=== PATIENT | male | born 1960 | race Caucasian/White ===

== ENCOUNTER → 2018-09-21 07:54 | Outpatient (CLI) | payer BC, SELFPAY ==
--- NOTE | 2018-09-21 07:56 | CT_ITS ---
CT heart w calcium score INDICATION: ITS.REASON: dizziness, DM, tachycardia ORDERING PHYSICIAN: Natan Shukla MD PATIENT AGE: 58 years COMPARISON: None TECHNIQUE: Axial images are obtained without contrast. Sagittal and coronal reformatted images are reviewed as well. All CT scans at the facility use one or more dose reduction, viz: automated exposure control, ma/kV adjustment per patient size (including targeted exams where dose is matched to indication, i.e. head), or iterative reconstruction technique. FINDINGS: The coronary artery calcium score 1 indicating minimal plaque burden with low cardiovascular disease risk. IMPRESSION: Minimal plaque burden with low cardiovascular disease risk
== END ==
PROVIDERS: PCP Physician Assistant; Visit Provider Internal Medicine Cardiovascular Disease
DX: E11.8 Type 2 diabetes mellitus with unspecified complications (principal); E78.2 Mixed hyperlipidemia; I10 Essential (primary) hypertension; R00.0 Tachycardia, unspecified; Z87.891 Personal history of nicotine dependence
CPT/HCPCS: 75571

== ENCOUNTER → 2019-04-17 09:05 | Outpatient (CLI) | payer OTHER, SELFPAY ==
--- NOTE | 2019-04-17 09:37 | MR_ITS ---
PROCEDURE: MR SHOULDER RT WO CON CLINICAL INDICATION: exclude rotator cuff tear Right shoulder pain and popping with weakness in the arm. Previous shoulder surgery COMPARISON: XR SHOULDER RT MIN 2V from 03/23/2019 TECHNIQUE: Routine multiplanar multi echo sequences are performed without gadolinium enhancement. FINDINGS: There are postsurgical changes of the shoulder with prior osteotomy of the acromioclavicular joint with fluid present in the sub acromial in subclavicular region. There is thickening of the supraspinatus tendon with diffuse slight increased T2 signal consistent with tendinopathy or tendinosis. This could also be related to postsurgical changes. No obvious tear of the supraspinatus tendon. There is a complete tear of the infraspinatus tendon with mild retraction of the musculotendinous fibers. The teres minor tendon appears intact. There is thickening of the subscapularis tendon with some discontinuity of the fibers consistent with least a partial tear of the subscapularis tendon. No obvious labral tear. There is medial displacement of the long head of the biceps tendon not identified in the bicipital groove. There is a small shoulder joint effusion. IMPRESSION: 1. Complete tear of the infraspinatus tendon with mild retraction of the musculotendinous fibers. 2. Abnormal appearance of the supraspinatus tendon with thickening distally and may be due to tendinopathy/tendinosis and or postsurgical repair. A complete tear of the supraspinatus tendon is not felt to be present. 3. Prior osteotomy of the acromioclavicular joint with fluid inferior to the joint 4. Partial tear of the subscapularis tendon 5. There is medial displacement of the long head of the biceps tendon not identified in the bicipital groove Dictated by: Ravi Fang MD 04/19/2019 06:41 Electronically signed by Ravi Fang MD in [place] 04/19/2019 06:41
== END ==
PROVIDERS: PCP Physician Assistant; Visit Provider Orthopaedic Surgery
DX: M25.511 Pain in right shoulder (principal); S49.91XA Unspecified injury of right shoulder and upper arm, initial encounter; Y99.0 Civilian activity done for income or pay
CPT/HCPCS: 73221

== ENCOUNTER → 2019-05-09 14:11 | Outpatient (CLI) | payer OTHER, SELFPAY ==
--- NOTE | 2019-05-09 14:44 | XR_ITS ---
PROCEDURE: XR CHEST 2V CLINICAL HISTORY: HTN COMPARISON: CXR CHEST(2 VIEWS-NOT PORTABLE) from 09/07/2013 FINDINGS: The cardiomediastinal silhouette and pulmonary vascularity are within normal limits. The lungs are clear without infiltrates, suspicious nodules, or pleural effusions. No acute bony abnormalities. IMPRESSION: No acute findings. Dictated by: Ravi Fang MD 05/09/2019 14:56 Electronically signed by Ravi Fang MD in [facility] 05/09/2019 14:56
[2019-05-09 14:45] LABS: Basophils # 0.1 K/mm3 (0-0.2); Basophils % 0.8 % (0.1-2.0); Eosinophils # 0.2 K/mm3 (0.0-0.4); Hematocrit 49.2 % (42.0-52.0); Hemoglobin 16.8 g/dL (14.1-18.0); Lymphocytes # 3.3 K/mm3 (0.7-4.5); Lymphocytes % 32.2 % (10-50); Mean Corpuscular HGB Conc 34.1 g/dL (31.8-35.4); Mean Corpuscular Hemoglobin 30.6 pg (27.0-31.2); Mean Corpuscular Volume 89.9 fl (80-94); Mean Platelet Volume 8.3 fl (7.4-10.4); Monocytes # 0.6 K/mm3 (0.1-1.0); Monocytes % 5.3 % (1.7-9.3); Neutrophils # 6.2 K/mm3 (1.8-7.8); Neutrophils % 59.6 % (37.0-80.0); Platelet Count 272 K/mm3 (142-424); Red Blood Count 5.48 M/mm3 (4.60-6.20); White Blood Count 10.4 K/mm3 (4.8-10.8)
--- NOTE | 2019-05-09 15:04 | ECG_ITS ---
APPROVED REPORT Exam: Resting ECG HR:79 bpm ECG Measurements Heart Rate 79 AXES LA 146 P 67 QRSd 86 QRS 36 QT 380 T 56 QTc 435 <Conclusion> Normal sinus rhythm Normal ECG Electronically signed by : Ronnie Marrero, 05/09/2019 21:22:55
[2019-05-09 15:46] LABS: Hemoglobin A1C 6.1 % (0.0-7.0)
[2019-05-09 16:58] LABS: Alanine Aminotransferase 21 U/L (12-78); Albumin Level 4.1 gm/dL (3.4-5.0); Albumin/Globulin Ratio 1.4 (1.1-1.8); Alkaline Phosphatase 73 U/L (46-116); Anion Gap 16.2 mEq/L (5-15); Aspartate Amino Transferase 15 U/L (15-37); Bilirubin,Total 0.9 mg/dL (0.2-1.0); Blood Urea Nitrogen 20 mg/dL (7-18); Calcium 9.2 mg/dL (8.5-10.1); Carbon Dioxide 25 mmol/L (21.0-32.0); Chloride 100 mmol/L (98-107); Creatinine,Serum 0.97 mg/dL (0.70-1.30); Estimated Glomerular Filt Rate 79 ml/min (>60); GFR (African American) 96 ML/MIN (>60); Globulin 2.9 gm/dl (1.3-3.2); Glucose 129 mg/dL (74-106); Potassium 4.2 mmoL/L (3.5-5.1); Sodium 137 mmol/L (136-145)
== END ==
PROVIDERS: PCP Physician Assistant; Visit Provider Orthopaedic Surgery
DX: Z01.818 Encounter for other preprocedural examination (principal); M25.511 Pain in right shoulder; S46.119A Strain of muscle, fascia and tendon of long head of biceps, unspecified arm, initial encounter; S49.91XD Unspecified injury of right shoulder and upper arm, subsequent encounter; S46.011D Strain of muscle(s) and tendon(s) of the rotator cuff of right shoulder, subsequent encounter; M67.911 Unspecified disorder of synovium and tendon, right shoulder; Y99.0 Civilian activity done for income or pay; Z98.890 Other specified postprocedural states
CPT/HCPCS: 36415; 71046; 80053; 83036; 85025; 93005

== ENCOUNTER → 2019-08-21 08:28 | Outpatient (CLI) | payer OTHER, SELFPAY ==
--- NOTE | 2019-08-21 08:31 | XR_ITS ---
PROCEDURE: XR SHOULDER RT MIN 2V CLINICAL INDICATION: sp RT shoulder surgery, dos 05/14/19 Follow-up surgery COMPARISON: SHOU3L [id number] VIEWS from 07/21/2013 SHOU3R [id number] VIEWS from 11/12/2014 XR SHOULDER RT MIN 2V from 03/23/2019 FINDINGS: There are 2 anchor screws over the mid aspect of the humeral head. There is a faint area of calcification overlying the greater tuberosity which could be due to a small avulsed fragment or soft tissue calcification. There is good alignment with mild osteoarthritic changes of the glenohumeral joint. A lucency is present in the proximal shaft of the humerus and may be related bicipital transfer. There are 2 lucencies in the humeral head which may be postsurgical. Please correlate with patient's surgical history the IMPRESSION: Postsurgical changes as described above Dictated by: Ravi Fang MD 08/21/2019 12:07 Electronically signed by Ravi Fang MD in [place] 08/21/2019 12:07
== END ==
PROVIDERS: PCP Physician Assistant; Visit Provider Orthopaedic Surgery
DX: Z09 Encounter for follow-up examination after completed treatment for conditions other than malignant neoplasm (principal); M25.511 Pain in right shoulder
CPT/HCPCS: 73030

== ENCOUNTER 2019-09-04 07:00 | Outpatient (RCR) | payer OTHER, SELFPAY ==
--- NOTE | 2019-07-12 09:11 | HMH.PTOPEV ---
PT Outpatient Evaluation Rehab PT Outpatient Evaluation Start: 07/12/19 08:01 Freq: Status: Active Protocol: Document 07/12/19 08:37 FUENTES (Rec: 07/12/19 09:11 PDESEROUX [id number]) Electronically Signed By Andre Sands, PT 07/12/19 08:37 Outpatient Therapy Subjective History Subjective History Pt. is a 59 year old male who presents to outpatient PT clinic with complaints of subacute and constant R shoulder pain/ soreness s/p R shldr. arthroscopic RCR, SAD w/ subacromial and subdeltoid bursectomy, GH jt. debridement , and bicep tenodesis on 05/14. 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 Pt. reports post surgical restrictions including no pushing/pulling nor lifting, and donning sling at all times. Pt. RTMD on . Current medications include Ibuprofen and Metformin. PMH includes 2 prior R shldr. RCRs, L shldr. RCR x 1, HTN, R elbow fx., type II diabetes, and Lymphoma . Chief Complaint Pain,Other Symptom Type Ache,Numbness Symptoms Relieved By Rest/Positioning,Ice,Brace/ Support,Prescription Meds Symptoms Aggravated By Supine,Physical Activity, Lifting Prior Functional Limitations None Current Functional Limitations Reaching,Lifting,Housework, Dressing,Driving,Sleeping Symptom Description Constant and Continuous Level of pain today (0-10) 5 Pain scale - at its best (0-10) 5 Pain scale - at its worst (0-10) 7 Shoulder/Elbow Eval Shoulder Objective Measurements Palpation Tenderness tenderness shoulder exam standard right tenderness over the bicipital tendon right shoulder exam standard tenderness over the SA bursa shoulder right exam standard Shoulder Palpation Findings Tenderness Shoulder Palpation Overall Comment grade 3 +TTP to above assessment, and R upper trap/
== END 2019-10-16 08:36 | disposition home or self-care (01) ==
LOC: PT.CARL 07:00
PROVIDERS: Visit Provider Orthopaedic Surgery
DX: M25.511 Pain in right shoulder (principal); S49.91XD Unspecified injury of right shoulder and upper arm, subsequent encounter; S46.011D Strain of muscle(s) and tendon(s) of the rotator cuff of right shoulder, subsequent encounter; S46.119A Strain of muscle, fascia and tendon of long head of biceps, unspecified arm, initial encounter; Z98.890 Other specified postprocedural states; Y99.0 Civilian activity done for income or pay
CPT/HCPCS: 97010; 97014; 97033; 97110; 97140; 97163; 97164; G0283

== ENCOUNTER → 2019-10-08 08:03 | Outpatient (CLI) | payer OTHER, SELFPAY ==
[2019-10-08 08:26] LABS: Basophils # 0.1 K/mm3 (0-0.2); Basophils % 0.8 % (0.1-2.0); Chloride 100 mmol/L (98-107); Eosinophils # 0.1 K/mm3 (0.0-0.4); Eosinophils % 1.2 % (0.1-12.0); Hematocrit 49.6 % (42.0-52.0); Hemoglobin 16.2 g/dL (14.1-18.0); Lymphocytes # 2.6 K/mm3 (0.7-4.5); Lymphocytes % 30.3 % (10-50); Mean Corpuscular HGB Conc 32.8 g/dL (31.8-35.4); Mean Corpuscular Hemoglobin 29.2 pg (27.0-31.2); Mean Corpuscular Volume 89.2 fl (80-94); Mean Platelet Volume 7.5 fl (7.4-10.4); Monocytes # 0.6 K/mm3 (0.1-1.0); Monocytes % 7.4 % (1.7-9.3); Neutrophils # 5.1 K/mm3 (1.8-7.8); Neutrophils % 60.4 % (37.0-80.0); Platelet Count 322 K/mm3 (142-424); Red Blood Count 5.56 M/mm3 (4.60-6.20); Red Cell Distribution Width 13.8 % (11.5-17.5); Sodium 138 mmol/L (136-145); White Blood Count 8.5 K/mm3 (4.8-10.8)
[2019-10-08 08:27] LABS: Potassium 4.3 mmoL/L (3.5-5.1)
[2019-10-08 08:29] LABS: Blood Urea Nitrogen 14 mg/dl (9-20); Estimated Glomerular Filt Rate 115 ml/min (>60); GFR (African American) 139 ML/MIN (>60)
[2019-10-08 08:30] LABS: Anion Gap 14.3 mEq/L (5-15); Calcium 9.9 mg/dl (8.4-10.2); Carbon Dioxide 28 mmol/L (22.0-30.0); Glucose 139 mg/dl (74-100)
[2019-10-08 08:35] LABS: C-Reactive Protein 28.7 mg/L (0-4)
[2019-10-08 08:53] LABS: Erythrocyte Sedimentation Rate 16 mm/hr (0-20)
--- NOTE | 2019-10-08 09:52 | XR_ITS ---
PROCEDURE: XR SHOULDER RT MIN 2V CLINICAL INDICATION: right shoulder pain Pain and swelling COMPARISON: SHOU3L [id number] VIEWS from 07/21/2013 SHOU3R [id number] VIEWS from 11/12/2014 XR SHOULDER RT MIN 2V from 03/23/2019 XR SHOULDER RT MIN 2V from 08/21/2019 FINDINGS: There are postsurgical changes with 2 anchor screws along the proximal aspect of the humerus. A lucent defect is noted in the proximal humeral and may be due to prior bicipital tendon transfer. There is some irregularity of the greater tuberosity some of which may be due to postsurgical changes. Minimal osteoarthritic change noted at the glenohumeral joint. IMPRESSION: There are mild osteoarthritic changes and postsurgical changes as described above. Dictated by: Ravi Fang MD 10/08/2019 15:02 Electronically signed by Ravi Fang MD in [place] 10/08/2019 15:02
== END ==
LOC: LAB 08:04 → RAD 09:49
PROVIDERS: PCP Physician Assistant; Visit Provider Orthopaedic Surgery
DX: M25.511 Pain in right shoulder (principal); Z09 Encounter for follow-up examination after completed treatment for conditions other than malignant neoplasm
CPT/HCPCS: 36415; 73030; 80048; 85025; 85651; 86140

== ENCOUNTER → 2019-10-16 10:37 | Outpatient (CLI) | payer OTHER, SELFPAY ==
--- NOTE | 2019-10-16 10:38 | MR_ITS ---
PROCEDURE: MR SHOULDER RT WO/W CON CLINICAL INDICATION: sp RT shoulder sx 05/14/19 COMPARISON: MR SHOULDER RT WO CON from 04/17/2019 XR SHOULDER RT MIN 2V from 10/08/2019 TECHNIQUE: Routine multiplanar multi echo sequences are performed without and with gadolinium enhancement. FINDINGS: There is complete tear of the infraspinatus tendon with retraction of the musculotendinous fibers. There is now evidence of complete tear of the supraspinatus tendon with retraction of the musculotendinous fibers. Postsurgical changes are present at the shoulder with screws in the humeral head. There is tendinopathy/tendinosis of the subscapularis tendon. The teres minor tendon appears intact. There is been bicipital tendon transfer. There is a small shoulder joint effusion and there is fluid in the subacromial/sub coracoid region as well as a small amount fluid in the shoulder joint. Considerable artifact is present from the surgical changes. Edema is also noted in the posterior lateral deltoid region likely from the previous surgery. No obvious labral tear. IMPRESSION: 1. There is complete tear of the supraspinatus and infraspinatus tendon with retraction of the musculotendinous fibers. 2. Postsurgical changes are present with fluid noted in the sub acromial in subcoracoid region as well as in the shoulder joint Dictated by: Ravi Fang MD 10/18/2019 11:42 Electronically signed by Ravi Fang MD in [place] 10/18/2019 11:42
== END ==
PROVIDERS: PCP Physician Assistant; Visit Provider Orthopaedic Surgery
DX: M25.511 Pain in right shoulder (principal); Z09 Encounter for follow-up examination after completed treatment for conditions other than malignant neoplasm; Z98.890 Other specified postprocedural states
CPT/HCPCS: 73223

== ENCOUNTER → 2019-10-22 14:44 | Outpatient (POV) | payer OTHER, SELFPAY | PROVIDERS: PCP Physician Assistant; Visit Provider Specialist | DX: M79.601 Pain in right arm (principal); M62.81 Muscle weakness (generalized); Z09 Encounter for follow-up examination after completed treatment for conditions other than malignant neoplasm; Z98.890 Other specified postprocedural states | CPT/HCPCS: 95886; 95908 ==

== ENCOUNTER → 2019-12-24 14:42 | Outpatient (CLI) | payer BC, SELFPAY ==
[2019-12-26 13:31] LABS: Covid-19 Nasal PCR Sendout Lex Not Detected
== END ==
PROVIDERS: PCP Physician Assistant; Visit Provider Physician Assistant
DX: Z03.818 Encounter for observation for suspected exposure to other biological agents ruled out (principal)
CPT/HCPCS: U0004

== ENCOUNTER 2020-07-07 08:00 | Outpatient (RCR) | payer OTHER, SELFPAY | END 2020-08-13 16:17 | disposition home or self-care (01) | LOC: PT.CARL 08:00 | PROVIDERS: Visit Provider Orthopaedic Surgery | DX: M25.511 Pain in right shoulder (principal) | CPT/HCPCS: 97010; 97014; 97033; 97035; 97110; 97140; 97163; 97164; G0283 ==

== ENCOUNTER → 2020-08-18 10:42 | Outpatient (CLI) | payer OTHER, BC, SELFPAY | PROVIDERS: PCP Physician Assistant; Visit Provider Orthopaedic Surgery | DX: Z01.812 Encounter for preprocedural laboratory examination (principal); Z20.822 Contact with and (suspected) exposure to COVID-19; M25.519 Pain in unspecified shoulder | CPT/HCPCS: U0003 ==

== ENCOUNTER 2021-02-06 07:00 | Outpatient (RCR) | payer OTHER, SELFPAY | END 2021-03-06 12:00 | disposition home or self-care (01) | LOC: PT.CARL 07:00 | PROVIDERS: Visit Provider Orthopaedic Surgery | DX: M25.511 Pain in right shoulder (principal) | CPT/HCPCS: 97010; 97014; 97110; 97140; 97163; 97164; G0283 ==

== ENCOUNTER → 2022-03-16 14:22 | Outpatient (CLI) | payer MEDICARE, SELFPAY ==
[2022-03-16 17:03] LABS: Alanine Aminotransferase 23 U/L (12-78); Albumin Level 4.4 g/dl (3.5-5.0); Albumin/Globulin Ratio 1.7 (1.1-1.8); Alkaline Phosphatase 85 U/L (38-126); Anion Gap 16.4 mEq/L (5-15); Aspartate Amino Transferase 32 U/L (17-59); Bilirubin,Total 1.3 mg/dl (0.2-1.3); Blood Urea Nitrogen 14 mg/dl (9-20); Carbon Dioxide 24 mmol/L (22.0-30.0); Chloride 100 mmol/L (98-107); Chol/HDL Ratio 2.5 (1-3.5); Cholesterol 149 mg/dl (140-200); Estimated Glomerular Filt Rate 98 ml/min (>60); GFR (African American) 119 ML/MIN (>60); Globulin 2.6 g/dL (1.3-3.2); Glucose 108 mg/dl (74-100); HDL Cholesterol 59 mg/dl (40-60); Potassium 4.4 mmoL/L (3.5-5.1); Sodium 136 mmol/L (136-145); Triglycerides 77 mg/dl (30-150); VLDL Cholesterol 15 mg/dL (0-40)
[2022-03-16 17:34] LABS: Thyroid Stimulating Hormone 1.56 uIU/mL (0.465-4.68)
[2022-03-16 18:20] LABS: Hemoglobin A1C 6.6 % (4.0-6.0)
[2022-03-16 18:22] LABS: Basophils # 0.1 K/mm3 (0-0.2); Basophils % 1.5 % (0.1-2.0); Eosinophils # 0.1 K/mm3 (0.0-0.4); Eosinophils % 1.5 % (0.1-12.0); Hematocrit 49.6 % (42.0-52.0); Hemoglobin 16.3 g/dL (14.1-18.0); Lymphocytes # 2.7 K/mm3 (0.7-4.5); Lymphocytes % 43.6 % (10-50); Mean Corpuscular HGB Conc 32.9 g/dL (31.8-35.4); Mean Corpuscular Hemoglobin 29.6 pg (27.0-31.2); Mean Corpuscular Volume 89.8 fl (80-94); Mean Platelet Volume 20.5 fl (7.4-10.4); Monocytes # 0.6 K/mm3 (0.1-1.0); Monocytes % 9.1 % (1.7-9.3); Neutrophils # 2.8 K/mm3 (1.8-7.8); Neutrophils % 45.8 % (37.0-80.0); Platelet Count 222 K/mm3 (142-424); Red Blood Count 5.52 M/mm3 (4.60-6.20); Red Cell Distribution Width 15.3 % (11.5-17.5); White Blood Count 6.1 K/mm3 (4.8-10.8)
[2022-03-16 19:24] LABS: Creatinine,Urine Random 80 mg/dL (Not Estab.); Microalbumin < 6.000 mg/L (0-16.7)
== END ==
PROVIDERS: PCP Physician Assistant; Visit Provider Physician Assistant
DX: E11.9 Type 2 diabetes mellitus without complications (principal); I10 Essential (primary) hypertension; Z79.4 Long term (current) use of insulin
CPT/HCPCS: 80053; 80061; 82043; 82570; 83036; 84443; 85025

== ENCOUNTER → 2023-06-23 16:38 | Outpatient (CLI) | payer MEDICARE, OTHER, SELFPAY ==
[2023-06-23 16:11] LABS: Alanine Aminotransferase 32 U/L (12-78); Albumin Level 4.5 g/dl (3.5-5.0); Albumin/Globulin Ratio 1.7 (1.1-1.8); Alkaline Phosphatase 98 U/L (38-126); Anion Gap 11.9 mEq/L (5-15); Aspartate Amino Transferase 36 U/L (17-59); Bilirubin,Total 0.6 mg/dl (0.2-1.3); Blood Urea Nitrogen 20 mg/dl (9-20); Calcium 9.2 mg/dl (8.4-10.2); Carbon Dioxide 25 mmol/L (22.0-30.0); Chloride 105 mmol/L (98-107); Chol/HDL Ratio 3.2 (1-3.5); Cholesterol 224 mg/dl (140-200); Estimated Glomerular Filt Rate 97 ml/min (>60); GFR (African American) 118 ML/MIN (>60); Globulin 2.6 g/dL (1.3-3.2); Glucose 140 mg/dl (74-100); HDL Cholesterol 70 mg/dl (40-60); Potassium 4.9 mmoL/L (3.5-5.1); Sodium 137 mmol/L (136-145); Total Protein,Serum 7.1 g/dl (6.3-8.2); Triglycerides 64 mg/dl (30-150); VLDL Cholesterol 13 mg/dL (0-40)
[2023-06-23 16:13] LABS: Basophils # 0.1 K/mm3 (0-0.2); Basophils % 0.9 % (0.1-2.0); Eosinophils # 0.1 K/mm3 (0.0-0.4); Hematocrit 46.9 % (42.0-52.0); Hemoglobin 15.3 g/dL (14.1-18.0); Lymphocytes # 2.7 K/mm3 (0.7-4.5); Lymphocytes % 39.7 % (10-50); Mean Corpuscular HGB Conc 32.5 g/dL (31.8-35.4); Mean Corpuscular Hemoglobin 29.7 pg (27.0-31.2); Mean Corpuscular Volume 91.3 fl (80-94); Mean Platelet Volume 9.8 fl (7.4-10.4); Monocytes # 0.7 K/mm3 (0.1-1.0); Monocytes % 9.5 % (1.7-9.3); Neutrophils # 3.3 K/mm3 (1.8-7.8); Neutrophils % 47.9 % (37.0-80.0); Platelet Count 288 K/mm3 (142-424); Red Blood Count 5.14 M/mm3 (4.60-6.20); Red Cell Distribution Width 14.5 % (11.5-17.5); White Blood Count 6.8 K/mm3 (4.8-10.8)
[2023-06-23 16:23] LABS: Direct LDL Cholesterol 112.22 mg/dL (100-129)
[2023-06-23 16:43] LABS: Thyroid Stimulating Hormone 2.22 uIU/mL (0.465-4.68)
== END ==
LOC: LAB.DROPOF 16:38
PROVIDERS: PCP Physician Assistant; Visit Provider Physician Assistant
DX: Z00.00 Encounter for general adult medical examination without abnormal findings (principal); Z12.5 Encounter for screening for malignant neoplasm of prostate; I10 Essential (primary) hypertension; E11.9 Type 2 diabetes mellitus without complications; Z79.84 Long term (current) use of oral hypoglycemic drugs; E78.5 Hyperlipidemia, unspecified
CPT/HCPCS: 80053; 80061; 84443; 85025; G0103

== ENCOUNTER 2024-01-06 16:26 | Outpatient (CLI) | payer MEDICARE, OTHER, SELFPAY ==
[2024-01-06 17:37] LABS: Creatinine,Urine Random 82 mg/dL (Not Estab.)
[2024-01-06 17:38] LABS: Microalbumin/Creatinine Ratio 128.2
[2024-01-06 18:40] LABS: Alanine Aminotransferase 30 U/L (12-78); Albumin/Globulin Ratio 1.7 (1.1-1.8); Alkaline Phosphatase 53 U/L (38-126); Anion Gap 15.9 mEq/L (5-15); Aspartate Amino Transferase 38 U/L (17-59); Bilirubin,Total 1.2 mg/dl (0.2-1.3); Blood Urea Nitrogen 19 mg/dl (9-20); Calcium 10.3 mg/dl (8.4-10.2); Carbon Dioxide 26 mmol/L (22.0-30.0); Chloride 105 mmol/L (98-107); Chol/HDL Ratio 1.6 (1-3.5); Cholesterol 142 mg/dl (140-200); Estimated Glomerular Filt Rate 85 ml/min (>60); GFR (African American) 103 ML/MIN (>60); Glucose 109 mg/dl (74-100); HDL Cholesterol 90 mg/dl (40-60); Potassium 4.9 mmoL/L (3.5-5.1); Sodium 142 mmol/L (136-145); Triglycerides 47 mg/dl (30-150); VLDL Cholesterol 9 mg/dL (0-40)
[2024-01-06 18:50] LABS: Direct LDL Cholesterol 36.78 mg/dL (100-129)
== END 2024-01-06 23:59 | disposition home or self-care (01) ==
LOC: LAB.DROPOF 16:27
PROVIDERS: PCP Physician Assistant; Visit Provider Physician Assistant
DX: E11.9 Type 2 diabetes mellitus without complications (principal); E78.5 Hyperlipidemia, unspecified; Z79.85 Long-term (current) use of injectable non-insulin antidiabetic drugs
CPT/HCPCS: 80053; 80061; 82043; 82570; 83036

== ENCOUNTER 2024-03-06 06:14 | Day surgery (SDC) | payer MEDICARE, OTHER, SELFPAY ==
[2024-03-02 13:03] VITALS: BMI 25.8
[2024-03-06 06:35] VITALS: BP 156/83; PULSE 79; RESP 18; TEMP 36.3; O2SAT 98
[2024-03-06] MEDS: LACTATED RINGERS 1000ML 1,000 ML 25 ML IV (06:44)
--- NOTE | 2024-03-06 07:25 | EXP.ANES.CKL ---
[facility] Disclaimer: The information contained in this section may have been updated after the patient was seen, as this information can be updated by other users. 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 current occupational exposures/hazards: No caffeine: Yes [facility] Anesthesia Checklist Patient Identification Patient Identification: Arm Band, Family and Verbal (Name & ) Structural Data Admitted From: Home Planned Operative Procedure/s: Colonoscopy Consent for Planned Operative Procedure(s) Verified: Yes Verified Documents: Surgical Consent and History and Physical NPO Status Verified Time NPO: 06:00 Chart Verification Results Verified: CBC, BMP, ECG and Chest Xray Additional verifications Fingerstick Blood Glucose: 123 Patient : No Anesthesia Reactions: No Hx Blood Transfusions: No Blood Transfusion Reaction: No Cardiovascular Assessment Heart Sounds: S1 & S2 Pulse Rhythm: Irregular Peripheral Edema: No Airway Assessment Mallampati Score:: Class II C-Spine Mobility Assessed: Yes (FROM demonstrated) TMJ Mobility Assessed: Yes Dentition: Good Dentition (Nothing loose per pt.) Neurological Assessment Level of Consciousness: Awake, Alert, Appropriate and Follows Commands Hx Seizures: No Numbness or tingling in extremities: No Anesthesia Plan Anesthesia Risk discussed: Yes Anesthesia Plan: Verified ASA Class: III Anesthesia Type: MAC
--- NOTE | 2024-03-06 07:31 | HMH.SCOPE ---
Procedure: Date: 03/06/24 Patient Date of :: 1960 Procedure Performed:: Colonoscopy with polypectomy by means other than snare Indications:: Positive Cologuard Performing Provider:: Brandt Garcia MD Referring Provider:: . Sedation:: Monitored anesthesia care Procedure:: After informed consent was obtained the patient was taken to the endoscopy suite. Sedation ensued after the patient was transferred to the left lateral decubitus position. Pulse, blood pressure, and oxygen saturation were monitored throughout the procedure. Digital rectal exam revealed no significant abnormality. The colonoscope was placed in position. The entire colon was evaluated. The colonoscope was carefully removed and the patient was transferred to recovery in stable condition. Please see findings and specimens below for detail. Findings:: Bowel preparation relatively poor Fairly significant spasticity/lack of relaxation Enlarged prostate Polyps (see specimens) Specimens:: Small polyp at 35 cm (cold biopsy forceps) Small polyp at 12 cm (cold biopsy forceps) Recommendations:: Timing of repeat colonoscopy is pending pathology but will likely be around 6 months with extended bowel preparation. Consider gastroenterology consultation for possible chronic constipation and note of poor bowel preparation and colonoscopy. Consider barium enema in near future secondary to positive Cologuard and equivocal coloscopic findings. Complications:: No immediate with the exception of fairly poor bowel preparation Estimated blood obtained (mL): 1 Colonoscopy Component Colonoscopy Component Was a colonoscopy performed during today's procedure?: Yes Recommended follow up colonoscopy of at least 10 years?: No If no, follow up colonoscopy recommended in ___ years?: (See above) Reason for not recommending >/= 10 yr follow-up interval?: (See above)
[2024-03-06 07:52] VITALS: O2SAT 98
[2024-03-06 08:30] VITALS: BP 107/67; PULSE 76; RESP 16; TEMP 36.3; O2SAT 100
[2024-03-06 08:45] VITALS: BP 114/68; PULSE 85; RESP 18; O2SAT 97
[2024-03-06 09:00] VITALS: BP 116/71; PULSE 74; RESP 18; O2SAT 99
[2024-03-07 06:41] LABS: POC Glucose,Bedside 123 (70-110)
== END 2024-03-06 09:00 | disposition home or self-care (01) ==
PROVIDERS: PCP Physician Assistant; Visit Provider Surgery
PROC: 0DJD8ZZ Inspection of Lower Intestinal Tract, Via Natural or Artificial Opening Endoscopic (ICD-10-PCS; CPT 45380; principal; 2024-03-06 07:30)
DX: Z12.11 Encounter for screening for malignant neoplasm of colon (principal); R19.5 Other fecal abnormalities; E11.8 Type 2 diabetes mellitus with unspecified complications; Z79.85 Long-term (current) use of injectable non-insulin antidiabetic drugs; K63.5 Polyp of colon
CPT/HCPCS: 45380; 82962; J7120

== ENCOUNTER 2024-10-17 08:10 | Outpatient (CLI) | payer MEDICARE, OTHER, SELFPAY ==
--- OUTSIDE RECORDS SUMMARY | 2024-10-17 08:13 | XMS_ITS ---
Laboratory report Created on: October 16, 2024 KASIEDEVEN : 1960 Sex: Male Author Name CHRISTINA IVEY Organization Unknown PROBLEMS Problems List Code Description R53.81 E11.9 RESULTS Laboratory Orders Date Order Code Test 2024-10-12 [id number] VITAMIN D, 25-HY DROXY 2024-10-12 [id number] HEMOGLOBIN A1C 2024-10-12 [id number] CBC WITH DIFFERE NTIAL/PLATELET 2024-10-12 [id number] COMP. METABOLIC PANEL (14) 2024-10-12 [id number] TSH 2024-10-12 [id number] VITAMIN B12 AND FOLATE Laboratory Results Date LOINC Test Value Unit Reference Range Interpre tation 2024-10-12 35570-1 VITAMIN D, 25-HYDROXY 15.5 NG/ML 30.0-100.0 L 2024-10-12 4548-4 HEMOGLOBIN A1C 8.2 % 4.8-5.6 H 2024-10-12 6690-2 WBC 7.5 X10E3/UL 3.4-10.8 2024-10-12 789-8 RBC 4.76 X10E6/UL 4.14-5.80 2024-10-12 718-7 HEMOGLOBIN 12.9 G/DL 13.0-17.7 L 2024-10-12 4544-3 HEMATOCRIT 40.9 % 37.5-51.0 2024-10-12 787-2 MCV 86 FL 79-97 2024-10-12 785-6 MCH 27.1 PG 26.6-33.0 2024-10-12 786-4 MCHC 31.5 G/DL 31.5-35.7 2024-10-12 788-0 RDW 13.2 % 11.6-15.4 2024-10-12 777-3 PLATELETS 301 X10E3/UL 904-002 2968-04-18 770-8 NEUTROPHILS 61 % 2024-10-12 736-9 LYMPHS 24 % 2024-10-12 5905-5 MONOCYTES 13 % 2024-10-12 713-8 EOS 1 % 2024-10-12 706-2 BASOS 1 % 2024-10-12 751-8 NEUTROPHILS (ABSOLUTE) 4.5 X10E3/UL 1.4-7.0 2024-10-12 731-0 LYMPHS (ABSOLUTE) 1.8 X10E3/UL 0.7-3.1 2024-10-12 742-7 MONOCYTES(ABSOLUTE) .9 X10E3/UL 0.1-0.9 2024-10-12 711-2 EOS (ABSOLUTE) .1 X10E3/UL 0.0-0.4 2024-10-12 704-7 BASO (ABSOLUTE) .1 X10E3/UL 0.0-0.2 2024-10-12 52074-3 IMMATURE GRANULOCYTES 0 % 2024-10-12 20567-9 IMMATURE GRANS (ABS) 0 X10E3/UL 0.0-0.1 2024-10-12 2345-7 GLUCOSE 149 MG/DL 70-99 H 2024-10-12 3094-0 BUN 17 MG/DL 8-27 2024-10-12 2160-0 CREATININE 1.43 MG/DL 0.76-1.27 H 2024-10-12 22174-4 EGFR 54 ML/MIN/1.73 >59 L 2024-10-12 3097-3 BUN/CREATININE RATIO 12 10-24 2024-10-12 2951-2 SODIUM 138 MMOL/L 267-317 6207-04-18 2823-3 POTASSIUM 4.2 MMOL/L 3.5-5.2 2024-10-12 2075-0 CHLORIDE 101 MMOL/L 96-106 2024-10-12 2028-9 CARBON DIOXIDE, TOTAL 16 MMOL/L 20-29 L 2024-10-12 60820-5 CALCIUM 9.7 MG/DL 8.6-10.2 2024-10-12 2885-2 PROTEIN, TOTAL 7.3 G/DL 6.0-8.5 2024-10-12 1751-7 ALBUMIN 4.3 G/DL 3.9-4.9 2024-10-12 50131-0 GLOBULIN, TOTAL 3 G/DL 1.5-4.5 2024-10-12 1975-2 BILIRUBIN, TOTAL 1.4 MG/DL 0.0-1.2 H 2024-10-12 6768-6 ALKALINE PHOSPHATASE 258 IU/L 44-121 H 2024-10-12 1920-8 AST (SGOT) 73 IU/L 0-40 H 2024-10-12 1742-6 ALT (SGPT) 87 IU/L 0-44 H 2024-10-12 34554-9 TSH 1.01 UIU/ML 0.450-4.500 2024-10-122-9 VITAMIN B12 >2000 PG/ML 232-1245 H 2024-10-124-8 FOLATE (FOLIC ACID), SERUM 8.5 NG/ML >3.0
--- NOTE | 2024-10-17 08:16 | US_ITS ---
FINAL REPORT TECHNIQUE: Sonographic images of the right upper quadrant were obtained. CLINICAL HISTORY: ELEVATION OF LEVELS COMPARISON: None FINDINGS: PANCREAS: Not well-visualized. LIVER: Homogeneous. No focal hepatic lesion. No intrahepatic biliary ductal dilatation. GALLBLADDER: The gallbladder is distended, and contains a large amount of sludge. No definite gallstones are visualized. No gallbladder wall thickening or pericholecystic fluid. COMMON DUCT: 11 mm. Dilated. RIGHT KIDNEY: The right kidney measures 11.7 cm. There is no hydronephrosis, mass, or stone. FREE FLUID: None. IMPRESSION: Distended gallbladder with sludge and common bile duct dilatation to 11 mm. No definite gallstones are visualized, and there is no wall thickening or pericholecystic fluid. Consider MRCP for further evaluation. Reviewed, Interpreted and Dictated by Lolis Mckoy MD Transcribed by Emepratriz Nuñez Authenticated and [facility]
== END 2024-10-17 23:59 | disposition home or self-care (01) ==
LOC: RAD 08:11
PROVIDERS: PCP Physician Assistant; Visit Provider Physician Assistant
DX: R74.01 Elevation of levels of liver transaminase levels (principal)
CPT/HCPCS: 76705

== ENCOUNTER 2024-10-18 10:53 | Outpatient (CLI) | payer MEDICARE, OTHER, SELFPAY ==
[2024-10-18 10:57] VITALS: BMI 25.0
[2024-10-18 11:27] LABS: Basophils # 0.1 K/mm3 (0-0.2); Eosinophils # 0.1 Kmm3 (0.0-0.4); Eosinophils % 1.1 % (0.1-12.0); Hematocrit 42.6 % (42.0-52.0); Hemoglobin 13.7 g/dL (14.1-18.0); Lymphocytes # 1.3 K/mm3 (0.7-4.5); Lymphocytes % 16.4 % (10-50); Mean Corpuscular HGB Conc 32.2 g/dL (31.8-35.4); Mean Corpuscular Volume 83.9 fl (80-94); Mean Platelet Volume 10.1 fl (7.4-10.4); Monocytes # 0.7 K/mm3 (0.1-1.0); Monocytes % 8.8 % (1.7-9.3); Neutrophils # 5.8 K/mm3 (1.8-7.8); Neutrophils % 72.3 % (37.0-80.0); Nucleated Red Blood Cells # 0 10^3/uL; Nucleated Red Blood Cells % 0 %; Platelet Count 395 K/mm3 (142-424); Red Blood Count 5.08 M/mm3 (4.60-6.20); Red Cell Distribution Width 13.9 % (11.5-17.5); Red Cell Distribution Width-SD 42.9 fL; White Blood Count 8.1 K/mm3 (4.8-10.8)
[2024-10-18 11:32] LABS: Alanine Aminotransferase 107 U/L (12-78); Albumin Level 4.5 g/dl (3.5-5.0); Albumin/Globulin Ratio 1.2 (1.1-1.8); Alkaline Phosphatase 255 U/L (38-126); Anion Gap 12.7 mEq/L (5-15); Aspartate Amino Transferase 82 U/L (17-59); Bilirubin,Total 2.6 mg/dl (0.2-1.3); Blood Urea Nitrogen 13 mg/dl (9-20); Calcium 9.4 mg/dl (8.4-10.2); Carbon Dioxide 24 mmol/L (22.0-30.0); Chloride 93 mmol/L (98-107); Creatinine Clearance Estimated 60 mL/min (50-200); Estimated Glomerular Filt Rate 55 ml/min (>60); GFR (African American) 67 ML/MIN (>60); Gamma Glutamyl Transpeptidase 393 U/L (15-73); Globulin 3.8 g/dL (1.3-3.2); Glucose 245 mg/dl (74-100); Potassium 3.7 mmoL/L (3.5-5.1); Sodium 126 mmol/L (136-145); Total Protein,Serum 8.3 g/dl (6.3-8.2)
[2024-10-18 11:42] LABS: INR 1.25 (0.9-1.1); Prothrombin Time 13.7 seconds (10.1-12.5)
[2024-10-18] MEDS: ONDANSETRON 4MG/2ML VIAL 4 MG IV (11:47)
[2024-10-18] MEDS: SODIUM CHLORIDE 0.9% 10ML FLUSH SYRINGE 10 ML IV (11:47)
[2024-10-18 11:54] VITALS: BP 114/65; PULSE 74; RESP 14; TEMP 36.5; O2SAT 99
[2024-10-18] MEDS: PANTOPRAZOLE 40MG VIAL 40 MG IV (11:54)
[2024-10-18] MEDS: Dex 5% in 0.45% NaCl 1,000 ML 999 ML IV (11:54)
[2024-10-18 11:55] LABS: Amylase 147 U/L (30-110)
[2024-10-18 11:56] LABS: Lipase 1377 U/L (23-300)
[2024-10-18] MEDS: CEFTRIAXONE 1 GM 1 GM in 0.9 % SODIUM CHLORIDE 50 ML IV (12:07)
[2024-10-18] MEDS: 0.9 % SODIUM CHLORIDE 1000ML 1,000 ML 999 ML IV (12:45)
[2024-10-18 13:10] VITALS: BP 134/77; PULSE 76; RESP 16; TEMP 36.5; O2SAT 99
[2024-10-19 16:36] LABS: EBV Ab VCA, IgM <36.0 U/mL (0.0-35.9)
== END 2024-10-18 13:10 | disposition home or self-care (01) ==
LOC: INF 10:54
PROVIDERS: PCP Physician Assistant; Visit Provider Physician Assistant
DX: R74.01 Elevation of levels of liver transaminase levels (principal)
CPT/HCPCS: 80053; 82150; 82977; 83690; 85025; 85610; 86664; 86665; 96360; 96361; 96374; 96375; J0696; J2405; J7030

== ENCOUNTER 2024-10-18 13:14 | Observation (INO) | payer MEDICARE, OTHER, SELFPAY ==
[2024-10-18] VITALS (9 sets, daily range): BP systolic 105–133; BP diastolic 57–78; PULSE 72–79; RESP 12–18; TEMP 36.6–36.9; O2SAT 95–100; BMI 25.0
--- NOTE | 2024-10-18 13:21 | PC.NURSE ---
pt brought down from infusion d/t PCP recommendations d/t elevated lipase
[2024-10-18 13:30] LABS: Microscopic, Urine URINE MICROSCOPIC (MICROSCOPIC)
[2024-10-18 13:31] LABS: Appearance,Urine CLOUDY (Clear); Blood, Urine 3+ (Negative); Color,Urine YELLOW (Yellow); Glucose,Urine (UA) 2+ (Negative); Ketones,Urine Negative (Negative); Leukocyte Esterase,Urine 1+ (Negative); Nitrate,Urine Negative (Negative); Protein,Urine 2+ (Negative); Specific Gravity, Urine 1.015 (1.005-1.030); Urobilinogen,Urine 0.2 EU/dl (0.2)
--- NOTE | 2024-10-18 13:37 | CT_ITS ---
FINAL REPORT TECHNIQUE: Thin section axial images were obtained through the abdomen after contrast injection per CT angiogram protocol. Multiplanar reconstruction images were obtained from the axial data. This exam was performed with techniques to keep radiation dose as low as reasonably achievable. This includes automated exposure control, adjustment of the MA and KVP, and iterative reconstruction technique. CLINICAL HISTORY: 2 weeks of back pain, painless transaminitis COMPARISON: None FINDINGS: CTA: No abdominal aortic aneurysm or aortic dissection. The celiac axis, superior mesenteric artery, and inferior mesenteric artery are patent without stenosis. The renal arteries are patent. The common iliac arteries and visualized portions of the internal and external iliac arteries are patent. No significant stenosis. NONVASCULAR: Intra and extrahepatic biliary ductal dilatation is present. The common bile duct measures up to 16 mm on coronal images. The gallbladder is distended, however, no gallstones are seen. The spleen and adrenal glands are unremarkable. There is a hypodense mass in the uncinate process and head of the pancreas, measuring 36 x 31 mm in size, that likely invades the wall of the adjacent duodenum. No pancreatic ductal dilatation is seen. This mass does not contact the superior mesenteric artery or superior mesenteric vein. The kidneys are unremarkable in appearance. No acute abnormality of the small or large bowel is seen. The appendix is normal. There is no abdominal or pelvic adenopathy or ascites. IMPRESSION: No evidence of abdominal aortic aneurysm or dissection. No significant stenosis. There is a mass in the region of the uncinate process and head of the pancreas, and is inseparable from the duodenum. This mass is obstructing the common bile duct. Favor pancreatic adenocarcinoma, although duodenal neoplasm is not excluded. Reviewed, Interpreted and Dictated by Lolis Mckoy MD Transcribed by Emperatriz Nuñez Authenticated and . [facility]
--- NOTE | 2024-10-18 13:37 | CT_ITS ---
FINAL REPORT TECHNIQUE: Axial imaging of the chest is obtained after the administration of contrast. 3-D MIP reformatted images were also obtained and reviewed per PE protocol. This study was performed with techniques to keep radiation doses as low as reasonably achievable (ALARA). Individualized dose reduction techniques using automated exposure control or adjustment of mA and/or kV according to the patient's size were employed. CLINICAL HISTORY: 2 weeks of thoracic back pain, transaminitis COMPARISON: None FINDINGS: The pulmonary arteries are well filled. There is no evidence of pulmonary embolus. There is no aortic dissection. Heart size is normal. There is no mediastinal, hilar, or axillary lymphadenopathy. The lungs are clear. There is no pleural or pericardial effusion. No acute osseous abnormality. IMPRESSION: No evidence of pulmonary embolism or aortic dissection. Reviewed, Interpreted and Dictated by Lolis Mckoy MD Transcribed by Emperatriz Nuñez Authenticated and . [facility]
--- NOTE | 2024-10-18 13:39 | HMH.EDGENADL ---
Discharge Plan Disposition Patient Disposition: Admitted Condition: Serious Clinical Impressions Clinical Impression: Mass of pancreas, Obstructive jaundice, Transaminitis, Elevated lipase, BPH with urinary obstruction Urinary tract infectious disease Qualifiers: Urinary tract infection type: site unspecified Hematuria presence: with hematuria Qualified Code(s): N39.0 - Urinary tract infection, site not specified Discharge ED Provider: Tai Lucero General Adult HPI <ABIMAEL Jhaveri - Last Filed: 10/18/24 20:41> General Chief complaint: Recheck/Abnormal Lab/Rx Stated complaint: back pain, abnormal labs Time Seen by Provider: 10/18/24 13:39 Mode of Arrival: Wheelchair Source of Information: Patient Description of Symptoms (Recalled from ER Triage Doc. by RN): possible pancreatitis? brought from infusion. losing weight. nauseous. x1 month History of Present Illness HPI narrative: Patient presents at the behest of his PCP for abnormal lab test. Patient gives a history of 3 weeks of back pain at the level of his inferior scapular border bilaterally, decreased appetite but no nausea vomiting chest pain shortness of breath fever chills hemoptysis hematochezia melena hematemesis hematuria. He can eat and has no pain with eating just has a decreased appetite. He also reports a 15 pound weight loss over the last 2 weeks. He went to see his PCP today and as they could not draw labs they sent him to the infusion center to get labs and crystalloid bolus. Laboratory investigations show marked elevated lipase and transaminitis and subsequently was sent to the ER for evaluation. Patient does have a past medical history of lymphoma treated with chemotherapy some 30 years ago. He was a previous smoker but has not smoked in 30 years. He is not a drinker. Patient denies any dysuria urinary hesitancy frequency or micturition. Related Data Home Medications ?Medication ?Instructions ?Recorded ?Confirmed aspirin 81 mg tablet,delayed 81 mg PO DAILY 08/29/20 10/18/24 release cholecalciferol (vitamin D3) 25 25 mcg PO DAILY 10/18/24 10/18/24 mcg (1,000 unit) capsule desvenlafaxine succinate 50 mg 50 mg PO DAILY 10/18/24 10/18/24 tablet,extended release 24 hr ergocalciferol (vitamin D2) 1,250 1,250 mcg PO WEEKLY 10/18/24 10/18/24 mcg (50,000 unit) capsule levocetirizine 5 mg tablet 5 mg PO DAILY 10/18/24 10/18/24 linaclotide 145 mcg capsule 145 mcg PO DAILY 10/18/24 10/18/24 (Linzess) lisinopril 20 mg tablet 20 mg PO DAILY 10/18/24 10/18/24 metoprolol succinate 50 mg 50 mg PO DAILY 10/18/24 10/18/24 tablet,extended release 24 hr pioglitazone 30 mg tablet 30 mg PO DAILY 10/18/24 10/18/24 rosuvastatin 40 mg tablet 40 mg PO DAILY 10/18/24 10/18/24 semaglutide 2 mg/dose (8 mg/3 mL) 2 mg SQ WEEKLY 10/18/24 10/18/24 subcutaneous pen injector (Ozempic) Allergies Allergy/AdvReac Type Severity Reaction Status Date / Time No Known Allergies Allergy Verified 10/18/24 12:28 [facility] <ABIMAEL Jhaveri - Last Filed: 10/18/24 20:41> [facility] Disclaimer: The information contained in this section may have been updated after the patient was seen, as this information can be updated by other users. 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 occupational exposures/hazards: No caffeine: Yes Have you lived/traveled outside [place] in past 30 days?: No Contact w/someone who lives/traveled outside US past 30 days?: No Exposure to someone with infectious disease in past 14 days?: No Do you have a fever (greater than 100.4 F or 38 C)?: No Have you tested positive for COVID-19: No Exposed to someone with COVID-19 in past 14 days?: No Do you have a sore throat?: No Do you have a cough?: No Do you have any weakness?: No Are you experiencing any nausea/vomitting?: No Do you have any diarrhea?: No Are you experiencing any unusual bleeding?: No Do you have any muscle aches/pain?: No Do you have any abdominal pain?: No Are you experiencing loss of taste or smell?: No Other Medical History Have you received the Flu Vaccine for this season: Yes Have you received the Pneumonia Vaccine: No <ABIMAEL Jhaveri - Last Filed: 10/18/24 20:41> ROS Obtained: Yes Systems reviewed as appropriate & no additional complaints except as documented Physical Exam <ABIMAEL Jhaveri - Last Filed: 10/18/24 20:41> General General appearance: alert and in no apparent distress Respiratory Respiratory exam: Present normal lung sounds bilaterally Cardiovascular Cardiovascular exam: Present regular rate Neurological Exam Neurological exam: Present alert and oriented X3 Medical Decision Making <ABIMAEL Jhaveri - Last Filed: 10/18/24 20:41> Medical Records Medical records reviewed: Yes I reviewed the patient's medical records. Screening: Per USPSTF and CDC recommendations, given the prevalence of disease in our region, it is our hospital?s policy to screen for HIV and viral Hepatitis for all patients aged 18 and over and those with ongoing risk factors. Janes Inquiry Pt receiving controlled substance: No Vital Signs: 10/18/24 13:30 10/18/24 13:37 10/18/24 15:01 Temperature 98.4 F Temperature Source Oral Pulse Rate 72 76 Pulse Rate [Right] 78 Respiratory Rate 12 18 Blood Pressure 133/78 115/63 Blood Pressure [Right Arm] 133/78 Blood Pressure Mean [Right Arm] 96 Blood Pressure Source 02 Sat by Pulse Oximetry 95 100 97 Oxygen Delivery Method Room Air Room Air 10/18/24 15:30 10/18/24 16:11 10/18/24 16:14 Temperature Temperature Source Pulse Rate 76 76 Pulse Rate [Right] Respiratory Rate 12 Blood Pressure 126/66 105/57 L Blood Pressure [Right Arm] Blood Pressure Mean [Right Arm] Blood Pressure Source 02 Sat by Pulse Oximetry 98 99 Oxygen Delivery Method Room Air 10/18/24 16:29 10/18/24 16:30 Temperature 98.4 F 98.4 F Temperature Source Oral Pulse Rate 73 77 Pulse Rate [Right] Respiratory Rate 17 15 Blood Pressure 105/57 L 125/71 Blood Pressure [Right Arm] Blood Pressure Mean [Right Arm] Blood Pressure Source Automatic Cuff 02 Sat by Pulse Oximetry Oxygen Delivery Method Room Air Room Air Lab Data Lab results reviewed: Yes I reviewed the patient's lab results. Lab Results 10/18/24 13:24: Urine Color Yellow, Urine Appearance Cloudy, Urine pH 7.0, Ur Specific Lugoff 1.015, Urine Protein 2+ A, Urine Glucose (UA) 2+, Urine Ketones Negative, Urine Blood 3+ A, Urine Nitrate Negative, Urine Bilirubin 1+ A, Urine Urobilinogen 0.2, Ur Leukocyte Esterase 1+ A, Urine RBC 5-10, Urine WBC 10-20, Ur Squamous Epith Cells 3-5, Urine Bacteria 4+, Fine Granular Casts 3-5 10/18/24 14:15: Sodium 131 L, Potassium 3.6, Chloride 99, Carbon Dioxide 23, Anion Gap 12.6, BUN 11, Creatinine 1.10, Estimated Creat Clear 71, Estimated GFR 67, Est GFR ( Amer) 81 D, Glucose 173 H D, Calcium 8.6, Total Bilirubin 2.1 H 10/18/24 14:15: Total Bilirubin 2.0 H, Direct Bilirubin 1.3 H, Conjugated Bilirubin 0.3, Indirect Bilirubin 0.8, Unconjugated Bilirubin 0.8, AST 71 H, ALT 88 H, Alkaline Phosphatase 233 H, Ammonia < 9 L, Total Protein 7.1, Albumin 3.8 D, Globulin 3.3 H, Albumin/Globulin Ratio 1.2, Acetaminophen < 10 L, Hepatitis A IgM Ab Negative, Hep Bs Antigen Negative, Hep B Core IgM Ab Negative, Hepatitis C Antibody Non reactive, HCV Ab LUIZ w/Rflx PCR Qn Negative, HCV RNA PCR Test Info Comment, HIV Ag/Ab Combo Qual Negative 10/19/24 06:06 10/19/24 06:06 Orders (Tests/Meds): ED MEDICATIONS Generic Name Dose Route Start Last Admin Trade Name Freq PRN Reason Stop Dose Admin Insulin Human Lispro 0 unit 10/18/24 21:00 10/19/24 06:11 Humalog 100 Units/Ml 10ml Vial (Ssi) SUBCUT 11/17/24 20:59 Not Given ACHS ASHLEY Protocol Lisinopril 20 mg 10/19/24 09:00 Lisinopril 20mg Tablet PO 11/18/24 08:59 DAILY [facility] Metoprolol Succinate 50 mg 10/19/24 09:00 Metoprolol Succinate Xl 50mg Tablet PO 11/18/24 08:59 DAILY ASHLEY Sodium Chloride 10 ml 10/18/24 13:59 10/18/24 13:59 Sodium Chloride 0.9% 10ml Syr (Rad Only) IV 11/17/24 13:58 10 ml NEEDED PRN Administration Maintain IV Site Venlafaxine HCl 75 mg 10/19/24 09:00 Venlafaxine Xr 75mg Capsule PO 11/18/24 08:59 DAILY ASHLEY Discontinued Medications Generic Name Dose Route Start Last Admin Trade Name Freq PRN Reason Stop Dose Admin Enoxaparin Sodium 40 mg 10/18/24 18:26 10/18/24 18:57 Enoxaparin 40mg/0.4ml Syringe SUBCUT 10/18/24 18:27 40 mg ONCE ONE Administration Sodium Chloride 1,000 mls @ 999 mls/hr 10/18/24 13:40 10/18/24 15:16 Sod Chlor 0.9% 1000ml Bag IV 10/18/24 14:40 999 mls/hr .Q1H1M ONE Administration Iopamidol 85 ml 10/18/24 13:59 10/18/24 13:59 Iopamidol-370 (76%);100ml Bottle IV 10/18/24 14:00 85 ml ONCE ONE Administration Sodium Chloride 50 ml 10/18/24 13:59 10/18/24 13:59 0.9 % Sodium Chloride 50 Ml Vial IV 10/18/24 14:00 50 ml ONCE ONE Administration ORDERS Category Date Time Status CT angio abdomen pelvis Stat Cat Scan 10/18/24 13:[address] angio chest PE protocol Stat Cat Scan 10/18/24 13:37 Completed Acetaminophen Stat Lab 10/18/24 14:15 Completed Ammonia Stat Lab 10/18/24 14:15 Completed Bilirubin Group (Ind,Dir,Tot) Stat Lab 10/18/24 14:15 Completed CA 19-9 Routine Lab 10/18/24 17:55 Received CEA Routine Lab 10/18/24 17:55 Received CMP [Comprehensive Metabolic Panel] Stat Lab 10/18/24 14:15 Completed Complete Blood Count Auto Diff AMLAB Lab 10/19/24 06:06 Completed Comprehensive Metabolic Panel AMLAB Lab 10/19/24 06:06 Completed HIV Combo Stat Lab 10/18/24 14:15 Completed Hepatitis C Ab Qual. W/ RFX Stat Lab 10/18/24 14:15 Completed Hepatitis Panel Stat Lab 10/18/24 14:15 Results Magnesium AMLAB Lab 10/19/24 06:06 Completed UA [Urinalysis and Microscopic] Stat Lab 10/18/24 13:24 Completed Urine Culture Stat Micro 10/18/24 13:24 Received Medical Decision Narrative: In summary patient is a 64-year-old male who presents to the emergency department for evaluation of painless transaminitis and elevated lipase. Patient is hemodynamically stable with a blood pressure 133/78 pulse 72 respiratory rate is 12 O2 sat is 95% patient is normal sinus rhythm on the bedside monitor upon arrival, patient is afebrile at 98.4. Physical exam is remarkable for a well-nourished well-developed 64-year-old gentleman who currently is in no acute distress. He does not appear to be visibly icteric. Pupils equal round reactive to light, abdomen is soft nontender no rebound no guarding no rigidity bowel sounds normal active. Breath sounds clear and equal bilaterally to the bases without adventitious sounds. Palpation of the area of his discomfort in his back is nonreproducible for any pain bony deformity noted.. Differential diagnosis includes biliary obstruction versus cholecystitis although seem less likely primary biliary neoplasm versus other abdominal neoplasm etc. Initial workup will be conducted with hematologic labs and CT scan chest abdomen pelvis urinalysis. Initial interventions include crystalloid bolus for now. Initial workup reviewed by me and his hematologic labs show a white count of 8.1 hemoglobin and hematocrit of 13.7 and 42.6 respectively and INR of 1.25 sodium of 126 chloride of 93 creatinine 1.3 GFR 55 glucose 245 total bilirubin is 2.6 direct bilirubin is 1.3 conjugated is 0.3 indirect 0.8 unconjugated 0.8 GGT is 393 AST is 82 ALT is 107 alk phos 255 amylase 147 lipase 1377 urinalysis shows 2+ protein and 3+ glucose ketone negative blood is 3+ nitrite -1+ bilirubin 1+ leukocyte esterase. My informal interpretation of his CT scan abdomen pelvis shows a markedly dilated intra and extrahepatic biliary ductal system largest is about 1.5 cm, he has a very markedly elevated gallbladder without wall thickening pericholecystic fluid or obstruction. Patient has a complex mass at the head of the pancreas that appears to be the source of the obstruction of the biliary tree that it seems to encase the duodenum as well. Patient also has a markedly dilated urinary bladder and a very large prostate that has a irregularities and calcifications concerning for prostate neoplasm. Upon repeat evaluation patient remains pain-free and is tolerating oral intake. Given this I had an interactive discussion with Dr. Saleh of gastroenterology regarding patient's presentation his workup findings and patient management and he recommended admission for ERCP in the a.m. I then had an interactive discussion and shared decision-making discussion with the patient and his at the bedside explaining his findings of concerning obstructing mass at the head of the pancreas and the proposed plan for admission and ERCP in the a.m. After appropriate questions were answered they were agreeable for admission. I then had an interactive discussion with Dr. Joseph of [facility] regarding patient presentation CERNA and patient management and he will be admitted for further evaluation and care. <Tai Lucero MD - Last Filed: 10/19/24 07:27> Vital Signs: 10/18/24 13:30 10/18/24 13:37 10/18/24 15:01 Temperature 98.4 F Temperature Source Oral Pulse Rate 72 76 Pulse Rate [Right] 78 Respiratory Rate 12 18 Blood Pressure 133/78 115/63 Blood Pressure [Right Arm] 133/78 Blood Pressure Mean [Right Arm] 96 Blood Pressure Source 02 Sat by Pulse Oximetry 95 100 97 Oxygen Delivery Method Room Air Room Air 10/18/24 15:30 10/18/24 16:11 10/18/24 16:14 Temperature Temperature Source Pulse Rate 76 76 Pulse Rate [Right] Respiratory Rate 12 Blood Pressure 126/66 105/57 L Blood Pressure [Right Arm] Blood Pressure Mean [Right Arm] Blood Pressure Source 02 Sat by Pulse Oximetry 98 99 Oxygen Delivery Method Room Air 10/18/24 16:29 10/18/24 16:30 Temperature 98.4 F 98.4 F Temperature Source Oral Pulse Rate 73 77 Pulse Rate [Right] Respiratory Rate 17 15 Blood Pressure 105/57 L 125/71 Blood Pressure [Right Arm] Blood Pressure Mean [Right Arm] Blood Pressure Source Automatic Cuff 02 Sat by Pulse Oximetry Oxygen Delivery Method Room Air Room Air Lab Data Lab Results 10/18/24 13:24: Urine Color Yellow, Urine Appearance Cloudy, Urine pH 7.0, Ur Specific Lugoff 1.015, Urine Protein 2+ A, Urine Glucose (UA) 2+, Urine Ketones Negative, Urine Blood 3+ A, Urine Nitrate Negative, Urine Bilirubin 1+ A, Urine Urobilinogen 0.2, Ur Leukocyte Esterase 1+ A, Urine RBC 5-10, Urine WBC 10-20, Ur Squamous Epith Cells 3-5, Urine Bacteria 4+, Fine Granular Casts 3-5 10/18/24 14:15: Sodium 131 L, Potassium 3.6, Chloride 99, Carbon Dioxide 23, Anion Gap 12.6, BUN 11, Creatinine 1.10, Estimated Creat Clear 71, Estimated GFR 67, Est GFR ( Amer) 81 D, Glucose 173 H D, Calcium 8.6, Total Bilirubin 2.1 H 10/18/24 14:15: Total Bilirubin 2.0 H, Direct Bilirubin 1.3 H, Conjugated Bilirubin 0.3, Indirect Bilirubin 0.8, Unconjugated Bilirubin 0.8, AST 71 H, ALT 88 H, Alkaline Phosphatase 233 H, Ammonia < 9 L, Total Protein 7.1, Albumin 3.8 D, Globulin 3.3 H, Albumin/Globulin Ratio 1.2, Acetaminophen < 10 L, Hepatitis A IgM Ab Negative, Hep Bs Antigen Negative, Hep B Core IgM Ab Negative, Hepatitis C Antibody Non reactive, HCV Ab LUIZ w/Rflx PCR Qn Negative, HCV RNA PCR Test Info Comment, HIV Ag/Ab Combo Qual Negative Orders (Tests/Meds): ED MEDICATIONS Generic Name Dose Route Start Last Admin Trade Name Jesse PRN Reason Stop Dose Admin Insulin Human Lispro 0 unit 10/18/24 21:00 10/19/24 06:11 Humalog 100 Units/Ml 10ml Vial (Ssi) SUBCUT 11/17/24 20:59 Not Given ACHS [facility] Protocol Lisinopril 20 mg 10/19/24 09:00 Lisinopril 20mg Tablet PO 11/18/24 08:59 DAILY [facility] Metoprolol Succinate 50 mg 10/19/24 09:00 Metoprolol Succinate Xl 50mg Tablet PO 11/18/24 08:59 DAILY [facility] Sodium Chloride 10 ml 10/18/24 13:59 10/18/24 13:59 Sodium Chloride 0.9% 10ml Syr (Rad Only) IV 11/17/24 13:58 10 ml NEEDED PRN Administration Maintain IV Site Venlafaxine HCl 75 mg 10/19/24 09:00 Venlafaxine Xr 75mg Capsule PO 11/18/24 08:59 DAILY [facility] Discontinued Medications Generic Name Dose Route Start Last Admin Trade Name Freq PRN Reason Stop Dose Admin Enoxaparin Sodium 40 mg 10/18/24 18:26 10/18/24 18:57 Enoxaparin 40mg/0.4ml Syringe SUBCUT 10/18/24 18:27 40 mg ONCE ONE Administration Sodium Chloride 1,000 mls @ 999 mls/hr 10/18/24 13:40 10/18/24 15:16 Sod Chlor 0.9% 1000ml Bag IV 10/18/24 14:40 999 mls/hr .Q1H1M ONE Administration Iopamidol 85 ml 10/18/24 13:59 10/18/24 13:59 Iopamidol-370 (76%);100ml Bottle IV 10/18/24 14:00 85 ml ONCE ONE Administration Sodium Chloride 50 ml 10/18/24 13:59 10/18/24 13:59 0.9 % Sodium Chloride 50 Ml Vial IV 10/18/24 14:00 50 ml ONCE ONE Administration ORDERS Category Date Time Status CT angio abdomen pelvis Stat Cat Scan 10/18/24 13:[address] angio chest PE protocol Stat Cat Scan 10/18/24 13:37 Completed Acetaminophen Stat Lab 10/18/24 14:15 Completed Ammonia Stat Lab 10/18/24 14:15 Completed Bilirubin Group (Ind,Dir,Tot) Stat Lab 10/18/24 14:15 Completed CA 19-9 Routine Lab 10/18/24 17:55 Received CEA Routine Lab 10/18/24 17:55 Received CMP [Comprehensive Metabolic Panel] Stat Lab 10/18/24 14:15 Completed Complete Blood Count Auto Diff AMLAB Lab 10/19/24 06:06 Completed Comprehensive Metabolic Panel AMLAB Lab 10/19/24 06:06 Completed HIV Combo Stat Lab 10/18/24 14:15 Completed Hepatitis C Ab Qual. W/ RFX Stat Lab 10/18/24 14:15 Completed Hepatitis Panel Stat Lab 10/18/24 14:15 Results Magnesium AMLAB Lab 10/19/24 06:06 Completed UA [Urinalysis and Microscopic] Stat Lab 10/18/24 13:24 Completed Urine Culture Stat Micro 10/18/24 13:24 Received Medical Decision Narrative: In summary patient is a 64-year-old male who presents to the emergency department for evaluation of painless transaminitis and elevated lipase. Patient is hemodynamically stable with a blood pressure 133/78 pulse 72 respiratory rate is 12 O2 sat is 95% patient is normal sinus rhythm on the bedside monitor upon arrival, patient is afebrile at 98.4. Physical exam is remarkable for a well-nourished well-developed 64-year-old gentleman who currently is in no acute distress. He does not appear to be visibly icteric. Pupils equal round reactive to light, abdomen is soft nontender no rebound no guarding no rigidity bowel sounds normal active. Breath sounds clear and equal bilaterally to the bases without adventitious sounds. Palpation of the area of his discomfort in his back is nonreproducible for any pain bony deformity noted.. Differential diagnosis includes biliary obstruction versus cholecystitis although seem less likely primary biliary neoplasm versus other abdominal neoplasm etc. Initial workup will be conducted with hematologic labs and CT scan chest abdomen pelvis urinalysis. Initial interventions include crystalloid bolus for now. Initial workup reviewed by me and his hematologic labs show a white count of 8.1 hemoglobin and hematocrit of 13.7 and 42.6 respectively and INR of 1.25 sodium of 126 chloride of 93 creatinine 1.3 GFR 55 glucose 245 total bilirubin is 2.6 direct bilirubin is 1.3 conjugated is 0.3 indirect 0.8 unconjugated 0.8 GGT is 393 AST is 82 ALT is 107 alk phos 255 amylase 147 lipase 1377 urinalysis shows 2+ protein and 3+ glucose ketone negative blood is 3+ nitrite -1+ bilirubin 1+ leukocyte esterase. My informal interpretation of his CT scan abdomen pelvis shows a markedly dilated intra and extrahepatic biliary ductal system largest is about 1.5 cm, he has a very markedly elevated gallbladder without wall thickening pericholecystic fluid or obstruction. Patient has a complex mass at the head of the pancreas that appears to be the source of the obstruction of the biliary tree that it seems to encase the duodenum as well. Patient also has a markedly dilated urinary bladder and a very large prostate that has a irregularities and calcifications concerning for prostate neoplasm. Upon repeat evaluation patient remains pain-free and is tolerating oral intake. Given this I had an interactive discussion with Dr. Saleh of gastroenterology regarding patient's presentation his workup findings and patient management and he recommended admission for ERCP in the a.m. I then had an interactive discussion and shared decision-making discussion with the patient and his at the bedside explaining his findings of concerning obstructing mass at the head of the pancreas and the proposed plan for admission and ERCP in the a.m. After appropriate questions were answered they were agreeable for admission. I then had an interactive discussion with Dr. Joseph of [facility] regarding patient presentation CERNA and patient management and he will be admitted for further evaluation and care. I was consulted by the NUNO, and we discussed the complexity of the problems being addressed. I approved the treatment and management plan for this patient's care in the Emergency Department, thus performing a substantive portion of the medical decision making. Tai Lucero MD Critical Care <ABIMAEL Jhaveri - Last Filed: 10/18/24 20:41> Critical Care Time Critical Care Time: Yes Attestation: On 10/18/24, the high probability of a clinically significant, sudden or life threatening deterioration of the following system(s) required my full and direct attention, intervention and personal management. The time I documented below is in addition to time spent performing reported procedures but includes the following listed in this critical care notation. Total Time Total Critical Care Time: 35
[2024-10-18 13:40] LABS: Bilirubin,Urine 1+ (Negative)
[2024-10-18 13:41] LABS: Bacteria,Urine 4+ /lpf
[2024-10-18] MEDS: 0.9 % SODIUM CHLORIDE 50 ML VIAL IV (13:59)
[2024-10-18] MEDS: SODIUM CHLORIDE 0.9% 10ML SYR (RAD ONLY) 10 ML IV (13:59)
[2024-10-18] MEDS: IOPAMIDOL-370 (76%);100ML BOTTLE 85 ML IV (13:59)
[2024-10-18 14:32] LABS: Acetaminophen < 10 ug/ml (10-30); Bilirubin, Conjugated 0.3 mg/dL (0.0-0.3); Bilirubin,Direct 1.3 mg/dl (0.0-0.4); Bilirubin,Indirect 0.8 mg/dL (0.0-0.9); Bilirubin,Total 2.1 mg/dl (0.2-1.3); Bilirubin,Unconjugated 0.8 mg/dL (0.0-1.1)
[2024-10-18 15:04] LABS: Albumin Level 3.8 g/dl (3.5-5.0); Chloride 99 mmol/L (98-107); Potassium 3.6 mmoL/L (3.5-5.1); Sodium 131 mmol/L (136-145)
[2024-10-18 15:07] LABS: Alanine Aminotransferase 88 U/L (12-78); Albumin/Globulin Ratio 1.2 (1.1-1.8); Alkaline Phosphatase 233 U/L (38-126); Anion Gap 12.6 mEq/L (5-15); Aspartate Amino Transferase 71 U/L (17-59); Blood Urea Nitrogen 11 mg/dl (9-20); Calcium 8.6 mg/dl (8.4-10.2); Carbon Dioxide 23 mmol/L (22.0-30.0); Creatinine Clearance Estimated 71 mL/min (50-200); Estimated Glomerular Filt Rate 67 ml/min (>60); GFR (African American) 81 ML/MIN (>60); Globulin 3.3 g/dL (1.3-3.2); Glucose 173 mg/dl (74-100); Total Protein,Serum 7.1 g/dl (6.3-8.2)
[2024-10-18] MEDS: 0.9 % SODIUM CHLORIDE 1000ML 1,000 ML 999 ML IV (15:16)
[2024-10-18 15:43] LABS: Hepatitis C Ab Qual. W/ RFX NEGATIVE (Negative)
--- NOTE | 2024-10-18 16:07 | EXP.HP ---
History of Present Illness *Admission Date: 10/18/24 *Reason for visit:: Back pain, unintentional weight loss *History of present illness: Mr. Carrillo is a 64-year-old male who presents from his PCP to the ER due to weakness, nausea, back pain. Patient states he had about a 15 pound weight loss over the past 6 to 8 weeks. Back pain began about 3 weeks ago. Denies nausea or vomiting. Denies any abdominal pain. Denies fever or night sweats. Had some labs obtained in the outpatient setting that showed mild elevation of liver enzymes and bilirubin. Concern for UTI, was sent to infusion for IV ceftriaxone. While here, his PCP recommended he go to the ER for further evaluation due to his abnormal labs. In the ED, labs showed normal hemoglobin. Liver chemistries showing bilirubin of 2, alk phos of 233. Lipase 1300. CT of abdomen obtained showing approximately 3-1/2 cm hypodense mass at the head of the pancreas. Concern for biliary dilatation as well. Medicine was consulted for admission and further management along with the assistance of GI. Arriving to the floor, patient appears in no acute distress. Stable on room air. Reports history in his family with mother having had pancreatic cancer within the past year at the age of 90. Had a sister that from advanced metastatic colon cancer within the past few years. Reports having had colonoscopy earlier this year with no abnormal findings. He is a former drinker and smoker but has not partaken in years. Is currently on GLP-1 for diabetes. [facility] Disclaimer: The information contained in this section may have been updated after the patient was seen, as this information can be updated by other users. 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 occupational exposures/hazards: No caffeine: Yes Have you lived/traveled outside US in past 30 days?: No Contact w/someone who lives/traveled outside US past 30 days?: No Exposure to someone with infectious disease in past 14 days?: No Do you have a fever (greater than 100.4 F or 38 C)?: No Have you tested positive for COVID-19: No Exposed to someone with COVID-19 in past 14 days?: No Do you have a sore throat?: No Do you have a cough?: No Do you have any weakness?: No Are you experiencing any nausea/vomitting?: No Do you have any diarrhea?: No Are you experiencing any unusual bleeding?: No Do you have any muscle aches/pain?: No Do you have any abdominal pain?: No Are you experiencing loss of taste or smell?: No Other Medical History Have you received the Flu Vaccine for this season: Yes Have you received the Pneumonia Vaccine: No Review of Systems Review of Systems Review of systems (narrative): 14 point review of systems performed, pertinent positives and negatives as per HPI Meds Home Medications and Allergies Home Medications ?Medication ?Instructions ?Recorded ?Confirmed ?Type aspirin 81 mg tablet,delayed 81 mg PO DAILY 08/29/20 10/18/24 History release cholecalciferol (vitamin D3) 25 25 mcg PO DAILY 10/18/24 10/18/24 History mcg (1,000 unit) capsule desvenlafaxine succinate 50 mg 50 mg PO DAILY 10/18/24 10/18/24 History tablet,extended release 24 hr ergocalciferol (vitamin D2) 1,250 1,250 mcg PO WEEKLY 10/18/24 10/18/24 History mcg (50,000 unit) capsule levocetirizine 5 mg tablet 5 mg PO DAILY 10/18/24 10/18/24 History linaclotide 145 mcg capsule 145 mcg PO DAILY 10/18/24 10/18/24 History (Linzess) lisinopril 20 mg tablet 20 mg PO DAILY 10/18/24 10/18/24 History metoprolol succinate 50 mg 50 mg PO DAILY 10/18/24 10/18/24 History tablet,extended release 24 hr pioglitazone 30 mg tablet 30 mg PO DAILY 10/18/24 10/18/24 History rosuvastatin 40 mg tablet 40 mg PO DAILY 10/18/24 10/18/24 History semaglutide 2 mg/dose (8 mg/3 mL) 2 mg SQ WEEKLY 10/18/24 10/18/24 History subcutaneous pen injector (Ozempic) New Prescriptions to Start Prescriptions: Allergies Allergy/AdvReac Type Severity Reaction Status Date / Time No Known Allergies Allergy Verified 10/18/24 12:28 Exam Data for Last 24 hours Vital signs and Labs for Last 24 Hours: Temp Pulse Resp BP Pulse Ox O2 Del Method 98.4 F 76 18 115/63 97 Room Air 10/18/24 13:37 10/18/24 15:01 10/18/24 13:37 10/18/24 15:01 10/18/24 15:01 10/18/24 15:01 Laboratory Results - last 24 hr 10/18/24 13:24: Urine Color Yellow, Urine Appearance Cloudy, Urine pH 7.0, Ur Specific [place] 1.015, Urine Protein 2+ A, Urine Glucose (UA) 2+, Urine Ketones Negative, Urine Blood 3+ A, Urine Nitrate Negative, Urine Bilirubin 1+ A, Urine Urobilinogen 0.2, Ur Leukocyte Esterase 1+ A, Urine RBC 5-10, Urine WBC 10-20, Ur Squamous Epith Cells 3-5, Urine Bacteria 4+, Fine Granular Casts 3-5 10/18/24 14:15: Sodium 131 L, Potassium 3.6, Chloride 99, Carbon Dioxide 23, Anion Gap 12.6, BUN 11, Creatinine 1.10, Estimated Creat Clear 71, Estimated GFR 67, Est GFR ( Amer) 81 D, Glucose 173 H D, Calcium 8.6, Total Bilirubin 2.1 H 10/18/24 14:15: Total Bilirubin 2.0 H, Direct Bilirubin 1.3 H, Conjugated Bilirubin 0.3, Indirect Bilirubin 0.8, Unconjugated Bilirubin 0.8, AST 71 H, ALT 88 H, Alkaline Phosphatase 233 H, Total Protein 7.1, Albumin 3.8 D, Globulin 3.3 H, Albumin/Globulin Ratio 1.2, Acetaminophen < 10 L, HCV Ab LUIZ w/Rflx PCR Qn Negative I & O for Last 24 hours: Intake & Output 10/15/24 10/16/24 10/17/24 10/18/24 23:59 23:59 23:59 23:59 Weight 74.843 kg Constitutional Constitutional: no acute distress, average body habitus and cooperative *Routine HEENT Exam Head: Present normocephalic Eye: Present EOMI and PERRL ENT: Present mucous membranes moist *Routine Neck Exam Neck: Present supple; Absent lymphadenopathy *Routine Respiratory Exam Respiratory: Present CTA bilaterally; Absent rhonchi, wheezes or crackles *Routine Cardiovascular Exam Cardiovascular: Present RRR *Routine Abdominal Exam Abdominal: Present soft and normoactive bowel sounds; Absent tenderness *Routine Rectal Exam Rectal:: deferred *Routine Genitalia Exam Genitalia:: deferred *Routine Extremities Exam Extremities: Absent cyanosis, clubbing or edema *Routine Skin Exam Skin: Present warm; Absent rash *Routine Neurological Exam Neurological: Present alert, oriented X3 and moving all extremities; Absent altered mental status Assessment and Plan *Assessment and plan (1) Malignant biliary obstruction: Status: Acute Category: Medical Code(s): K83.1 - Obstruction of bile duct; C80.1 - Malignant (primary) neoplasm, unspecified (2) Mass of head of pancreas: Status: Acute Category: Medical Code(s): K86.89 - Other specified diseases of pancreas (3) BPH with urinary obstruction: Status: Acute Category: Medical Code(s): N40.1 - Benign prostatic hyperplasia with lower urinary tract symptoms; N13.8 - Other obstructive and reflux uropathy (4) Transaminitis: Status: Acute Category: Medical Code(s): R74.01 - Elevation of levels of liver transaminase levels (5) Obstructive jaundice: Status: Acute Category: Medical Code(s): K83.1 - Obstruction of bile duct (6) HLD (hyperlipidemia): Status: Chronic Qualifiers: Hyperlipidemia type: mixed hyperlipidemia Qualified Code(s): E78.2 - Mixed hyperlipidemia Category: Medical Code(s): E78.5 - Hyperlipidemia, unspecified (7) DM2 (diabetes mellitus, type 2): Status: Chronic Qualifiers: Diabetes mellitus complication status: with unspecified complications Diabetes mellitus mcfp insulin use: with mcfp use Qualified Code(s): E11.8 - Type 2 diabetes mellitus with unspecified complications; Z79.4 - local [employer] truck driver (current) use of insulin Category: Medical Code(s): E11.9 - Type 2 diabetes mellitus without complications (8) Hypertension: Status: Chronic Qualifiers: Hypertension type: essential hypertension Qualified Code(s): I10 - Essential (primary) hypertension Category: Medical Code(s): I10 - Essential (primary) hypertension Plan 64-year-old male who presents with unintentional weight loss, pain in his back. Had labs obtained by his PCP that showed elevated liver enzymes concerning for an obstructive pathology. Presented to the ED, imaging identified pancreatic head mass. Medicine consulted for admission and further management along with GI for further workup. Discussed case with ER physician, request admission for ERCP in the morning and possible stenting of obstruction. I agreed to admit for further care. GI consulted. N.p.o. at midnight. Hemodynamically stable at this time. Problems addressed as follows: Pancreatic head mass Malignant biliary obstruction Suspected pancreatic adenocarcinoma Transaminitis - Discussed case with GI, will perform ERCP in the morning with brush biopsy and possible stent of obstruction. Recommend ordering CA 19-9 along with CEA. Further management pending ERCP - Per my review of CT, has a approximately 3 cm diameter mass at the head of the pancreas. Appears to abut the duodenum. Does not appear to obstruct or invade vasculature. - Repeat CBC, CMP, magnesium ordered for the morning. - Labs with sodium of 131, kidney function normal with BUN 11, creatinine 1.1, bilirubin elevated at 2, AST 71, ALT 88, alk phos 233. Diabetes: A1c ordered for the morning. Managed with oral medications and GLP-1. Discontinue GLP-1 with current findings on CT. Initiate sliding scale insulin with fingersticks ACHS. Glucose 173 on presentation Hyperlipidemia: Will hold Crestor in the setting of elevated liver enzymes Hypertension: Continue lisinopril 20 mg daily and metoprolol succinate 50 mg daily Depression: Continue desvenlafaxine succinate 50 mg daily Full code Lovenox 40 mg subcu once Clear liquids with n.p.o. at midnight
[2024-10-18 16:11] LABS: HIV Combo NEGATIVE (Negative)
--- NOTE | 2024-10-18 16:19 | PC.NURSE ---
report called to Karel LANDERS
--- NOTE | 2024-10-18 16:19 | HMH.PHAINT1 ---
Pharmacy Intervention Comments: MEDICATION RECONCILIATION COMPLETED ON PATIENT USING EXTERNAL FILL HISTORY FROM PHARMACY. -VENTURA NUNEZ, MARCELD
--- NOTE | 2024-10-18 16:26 | PC.NURSE ---
Dr. Casas is at bed side in room 1 at this time
--- NOTE | 2024-10-18 17:22 | EXP.GE.CONS ---
History of Present Illness *Admission Date: 10/18/24 *Reason for visit:: Pancreatic mass with biliary obstruction *History of present illness: Mr. Carrillo is a 64-year-old gentleman who presents with weakness, nausea and back pain. The patient does state that he has noted a 15 pound weight loss in the last 6 weeks and his back pain began about 3 weeks ago. He reports no abdominal pain but has noted some darkened urine. He reports no acholic stools. In the emergency department, he did have labs and had normal hemoglobin 13.7 and hematocrit 42.6. However, his liver chemistries were elevated with alkaline phosphatase 233, ALT 88, AST 71 and total bilirubin 2.0. His amylase and lipase were also elevated with amylase 147 and lipase 1377. Imaging of the abdomen was performed and this did show 3.6 x 3.1 cm hypodense mass in the uncinate process and head of the pancreas. There was also intra and extrahepatic biliary ductal dilation. There was patency of the celiac axis, SMA and inferior mesenteric artery. The mass was obstructing the common bile duct. The patient does state that his mother had pancreatic cancer more recently at the age of 90. His sister had colon cancer with very advanced metastatic disease. The patient reports no acholic stools. He has noted some darkening urine. He reports no fever or abdominal pain. The patient is a former smoker. [facility] Disclaimer: The information contained in this section may have been updated after the patient was seen, as this information can be updated by other users. 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 current occupational exposures/hazards: No caffeine: Yes Have you lived/traveled outside US in past 30 days?: No Contact w/someone who lives/traveled outside US past 30 days?: No Exposure to someone with infectious disease in past 14 days?: No Do you have a fever (greater than 100.4 F or 38 C)?: No Have you tested positive for COVID-19: No Exposed to someone with COVID-19 in past 14 days?: No Do you have a sore throat?: No Do you have a cough?: No Do you have any weakness?: No Are you experiencing any nausea/vomitting?: No Do you have any diarrhea?: No Are you experiencing any unusual bleeding?: No Do you have any muscle aches/pain?: No Do you have any abdominal pain?: No Are you experiencing loss of taste or smell?: No Meds Home Medications and Allergies Home Medications ?Medication ?Instructions ?Recorded ?Confirmed ?Type aspirin 81 mg tablet,delayed 81 mg PO DAILY 08/29/20 10/18/24 History release cholecalciferol (vitamin D3) 25 25 mcg PO DAILY 10/18/24 10/18/24 History mcg (1,000 unit) capsule desvenlafaxine succinate 50 mg 50 mg PO DAILY 10/18/24 10/18/24 History tablet,extended release 24 hr ergocalciferol (vitamin D2) 1,250 1,250 mcg PO WEEKLY 10/18/24 10/18/24 History mcg (50,000 unit) capsule levocetirizine 5 mg tablet 5 mg PO DAILY 10/18/24 10/18/24 History linaclotide 145 mcg capsule 145 mcg PO DAILY 10/18/24 10/18/24 History (Linzess) lisinopril 20 mg tablet 20 mg PO DAILY 10/18/24 10/18/24 History metoprolol succinate 50 mg 50 mg PO DAILY 10/18/24 10/18/24 History tablet,extended release 24 hr pioglitazone 30 mg tablet 30 mg PO DAILY 10/18/24 10/18/24 History rosuvastatin 40 mg tablet 40 mg PO DAILY 10/18/24 10/18/24 History semaglutide 2 mg/dose (8 mg/3 mL) 2 mg SQ WEEKLY 10/18/24 10/18/24 History subcutaneous pen injector (Ozempic) New Prescriptions to Start Prescriptions: Allergies Allergy/AdvReac Type Severity Reaction Status Date / Time No Known Allergies Allergy Verified 10/18/24 12:28 Exam (Inpt) Vital signs and Labs for Last 24 Hours: Temp Pulse Resp BP Pulse Ox O2 Del Method 97.8 F 77 16 119/72 95 Room Air 10/18/24 16:40 10/18/24 16:40 10/18/24 16:40 10/18/24 16:40 10/18/24 16:40 10/18/24 16:30 Laboratory Results - last 24 hr 10/18/24 13:24: Urine Color Yellow, Urine Appearance Cloudy, Urine pH 7.0, Ur Specific [place] 1.015, Urine Protein 2+ A, Urine Glucose (UA) 2+, Urine Ketones Negative, Urine Blood 3+ A, Urine Nitrate Negative, Urine Bilirubin 1+ A, Urine Urobilinogen 0.2, Ur Leukocyte Esterase 1+ A, Urine RBC 5-10, Urine WBC 10-20, Ur Squamous Epith Cells 3-5, Urine Bacteria 4+, Fine Granular Casts 3-5 10/18/24 14:15: Sodium 131 L, Potassium 3.6, Chloride 99, Carbon Dioxide 23, Anion Gap 12.6, BUN 11, Creatinine 1.10, Estimated Creat Clear 71, Estimated GFR 67, Est GFR ( Amer) 81 D, Glucose 173 H D, Calcium 8.6, Total Bilirubin 2.1 H 10/18/24 14:15: Total Bilirubin 2.0 H, Direct Bilirubin 1.3 H, Conjugated Bilirubin 0.3, Indirect Bilirubin 0.8, Unconjugated Bilirubin 0.8, AST 71 H, ALT 88 H, Alkaline Phosphatase 233 H, Total Protein 7.1, Albumin 3.8 D, Globulin 3.3 H, Albumin/Globulin Ratio 1.2, Acetaminophen < 10 L, HCV Ab LUIZ w/Rflx PCR Qn Negative, HIV Ag/Ab Combo Qual Negative I & O for Labs for Last 24 Hours: Intake & Output 10/15/24 10/16/24 10/17/24 10/18/24 23:59 23:59 23:59 23:59 Weight 165 lb 6 oz Comment:: Mildly icteric sclera GI: Present soft Comments:: Normoactive bowel sounds, soft, benign abdomen, no masses palpable Results Labs 10/18/24 14:15 Labs: Laboratory Results - last 24 hr 10/18/24 13:24: Urine Color Yellow, Urine Appearance Cloudy, Urine pH 7.0, Ur Specific [place] 1.015, Urine Protein 2+ A, Urine Glucose (UA) 2+, Urine Ketones Negative, Urine Blood 3+ A, Urine Nitrate Negative, Urine Bilirubin 1+ A, Urine Urobilinogen 0.2, Ur Leukocyte Esterase 1+ A, Urine RBC 5-10, Urine WBC 10-20, Ur Squamous Epith Cells 3-5, Urine Bacteria 4+, Fine Granular Casts 3-5 10/18/24 14:15: Sodium 131 L, Potassium 3.6, Chloride 99, Carbon Dioxide 23, Anion Gap 12.6, BUN 11, Creatinine 1.10, Estimated Creat Clear 71, Estimated GFR 67, Est GFR ( Amer) 81 D, Glucose 173 H D, Calcium 8.6, Total Bilirubin 2.1 H 10/18/24 14:15: Total Bilirubin 2.0 H, Direct Bilirubin 1.3 H, Conjugated Bilirubin 0.3, Indirect Bilirubin 0.8, Unconjugated Bilirubin 0.8, AST 71 H, ALT 88 H, Alkaline Phosphatase 233 H, Total Protein 7.1, Albumin 3.8 D, Globulin 3.3 H, Albumin/Globulin Ratio 1.2, Acetaminophen < 10 L, HCV Ab LUIZ w/Rflx PCR Qn Negative, HIV Ag/Ab Combo Qual Negative Assessment and Plan *Assessment and plan (1) Mass of head of pancreas: Status: Acute Category: Medical Code(s): K86.89 - Other specified diseases of pancreas (2) Malignant biliary obstruction: Status: Acute Category: Medical Code(s): K83.1 - Obstruction of bile duct; C80.1 - Malignant (primary) neoplasm, unspecified (3) Elevated lipase: Status: Acute Category: Medical Code(s): R74.8 - Abnormal levels of other serum enzymes Plan 1. Pancreatic head/uncinate mass without local or distant metastasis/adenopathy and apparently no involvement of the central vessels (celiac, SMA, etc.). I will plan ERCP in the morning with metal (nitinol) stent or plastic biliary stent placement to relieve malignant obstruction of biliary system. I will also obtain biopsies and possibly brushings for diagnosis. I will check CA 19-9 level. I do suspect pancreatic cancer more so than duodenal cancer but this does efface the duodenum. This can sometimes make ERCP more difficult if there is complete effacement of the duodenum at the level of the ampulla. In that regard, if ERCP fails, we will still be able to obtain biopsies to confirm diagnosis (pancreatic versus ampullary/duodenal). I did discuss this with Dr. Joseph. I also spoke with the patient. Presently, this does still appear resectable and after biopsy confirmation, I will discuss the case with surgical oncology (Eagle Ordoñez MD) at the [facility]. Newer protocols for early/mid stage pancreatic cancer at may involve a new trial with the pancreatic cancer vaccine which is showing promise.
[2024-10-18 18:53] LABS: Ammonia < 9 umol/L (9-30)
[2024-10-18] MEDS: ENOXAPARIN 40MG/0.4ML SYRINGE 40 MG SUBCUT (18:57)
[2024-10-18 21:58] LABS: POC Glucose,Bedside 135 (70-110)
[2024-10-19] VITALS (19 sets, daily range): BP systolic 111–157; BP diastolic 61–103; PULSE 68–100; RESP 13–22; TEMP 36.1–37.7; O2SAT 95–100; BMI 25.3
--- NOTE | 2024-10-19 05:29 | PC.NURSE ---
Pt NPO since midnight. v/s, ox4. at bedside. No acute events to report. Plan of care ongoing.
[2024-10-19 06:25] LABS: Basophils # 0.1 K/mm3 (0-0.2); Basophils % 0.7 % (0.1-2.0); Eosinophils # 0.1 Kmm3 (0.0-0.4); Eosinophils % 1.3 % (0.1-12.0); Hematocrit 35.1 % (42.0-52.0); Lymphocytes # 1.6 K/mm3 (0.7-4.5); Lymphocytes % 20.7 % (10-50); Mean Corpuscular Hemoglobin 27.4 pg (27.0-31.2); Mean Corpuscular Volume 82.8 fl (80-94); Mean Platelet Volume 10.1 fl (7.4-10.4); Monocytes % 13.1 % (1.7-9.3); Neutrophils # 4.8 K/mm3 (1.8-7.8); Neutrophils % 63.9 % (37.0-80.0); Nucleated Red Blood Cells # 0 10^3/uL; Nucleated Red Blood Cells % 0 %; Platelet Count 329 K/mm3 (142-424); Red Blood Count 4.24 M/mm3 (4.60-6.20); Red Cell Distribution Width-SD 42.5 fL; White Blood Count 7.5 K/mm3 (4.8-10.8)
[2024-10-19 06:32] LABS: Hemoglobin 11.6 g/dL (14.1-18.0)
[2024-10-19 06:33] LABS: Albumin Level 3.7 g/dl (3.5-5.0); Chloride 108 mmol/L (98-107); Sodium 135 mmol/L (136-145)
[2024-10-19 06:34] LABS: Potassium 3.6 mmoL/L (3.5-5.1)
[2024-10-19 06:36] LABS: Alanine Aminotransferase 75 U/L (12-78); Albumin/Globulin Ratio 1.1 (1.1-1.8); Alkaline Phosphatase 209 U/L (38-126); Anion Gap 9.6 mEq/L (5-15); Aspartate Amino Transferase 66 U/L (17-59); Bilirubin,Total 1.7 mg/dl (0.2-1.3); Blood Urea Nitrogen 8 mg/dl (9-20); Carbon Dioxide 21 mmol/L (22.0-30.0); Creatinine Clearance Estimated 61 mL/min (50-200); Estimated Glomerular Filt Rate 55 ml/min (>60); GFR (African American) 67 ML/MIN (>60); Globulin 3.3 g/dL (1.3-3.2)
[2024-10-19 06:37] LABS: Glucose 139 mg/dl (74-100)
[2024-10-19 07:13] LABS: HBsAg Screen Negative (Negative); HCV Ab Non Reactive (Non Reactive); Hep A Ab, IGM Negative (Negative); Hep B Core Ab, IgM Negative (Negative)
[2024-10-19 08:07] LABS: Hemoglobin A1C 7.7 % (4.0-6.0)
--- NOTE | 2024-10-19 09:01 | P.PNANES_ITS ---
[facility] Disclaimer: The information contained in this section may have been updated after the patient was seen, as this information can be updated by other users. 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 occupational exposures/hazards: No caffeine: Yes Have you lived/traveled outside [place] in past 30 days?: No Contact w/someone who lives/traveled outside US past 30 days?: No Exposure to someone with infectious disease in past 14 days?: No Do you have a fever (greater than 100.4 F or 38 C)?: No Have you tested positive for COVID-19: No Exposed to someone with COVID-19 in past 14 days?: No Do you have a sore throat?: No Do you have a cough?: No Do you have any weakness?: No Are you experiencing any nausea/vomitting?: No Do you have any diarrhea?: No Are you experiencing any unusual bleeding?: No Do you have any muscle aches/pain?: No Do you have any abdominal pain?: No Are you experiencing loss of taste or smell?: No [facility] Anesthesia Checklist Patient Identification Patient Identification: Arm Band and Verbal (Name & ) Structural Data Admitted From: Inpatient Planned Operative Procedure/s: ERCP Consent for Planned Operative Procedure(s) Verified: Yes Verified Documents: Surgical Consent NPO Status Verified Time NPO: 00:00 Chart Verification Results Verified: CBC and BMP Additional verifications Patient : No Anesthesia Reactions: No Hx Blood Transfusions: No Blood Transfusion Reaction: No Cephalosporin Allergy: No Airway Assessment Mallampati Score:: Class II C-Spine Mobility Assessed: Yes TMJ Mobility Assessed: No Dentition: Good Dentition Neurological Assessment Level of Consciousness: Awake, Alert and Appropriate Hx Seizures: No Numbness or tingling in extremities: No Anesthesia Plan Anesthesia Risk discussed: Yes Anesthesia Plan: Verified ASA Class: II Anesthesia Type: General
--- NOTE | 2024-10-19 09:10 | HMH.PROCNOTE ---
[facility] Procedure Note Date: 10/19/24 Time: 10:10 Procedure Note:: ERCP procedure Report: Endoscopic retrograde cholangiopancreatography with cold biopsies Endoscopist: Micha Saleh II, MD Referring Physician: Linnette Lam PA-C Date of Procedure: October 19, 2024 Equipment: Olympus 180 side viewing endoscope duodenoscope Sedation: MAC sedation Indication: Mr. Carrillo is a 64-year-old gentleman who is here today for diagnostic/therapeutic ERCP secondary to pancreatic mass and obstructive jaundice. He presented to the ED with weakness, nausea and back pain. The patient does state that he has noted a 15 pound weight loss in the last 6 weeks and his back pain began about 3 weeks ago. He reports no abdominal pain but has noted some darkened urine. He reports no acholic stools. In the emergency department, he did have labs and had normal hemoglobin 13.7 and hematocrit 42.6. However, his liver chemistries were elevated with alkaline phosphatase 233, ALT 88, AST 71 and total bilirubin 2.0. His amylase and lipase were also elevated with amylase 147 and lipase 1377. Imaging of the abdomen was performed and this did show 3.6 x 3.1 cm hypodense mass in the uncinate process and head of the pancreas. There was also intra and extrahepatic biliary ductal dilation. There was patency of the celiac axis, SMA and inferior mesenteric artery. The mass was obstructing the common bile duct. The patient does state that his mother had pancreatic cancer more recently at the age of 90. His sister had colon cancer with very advanced metastatic disease. The patient reports no acholic stools. He has noted some darkening urine. He reports no fever or abdominal pain. The patient is a former smoker. Procedure: Prior to the procedure, a history and physical exam was performed, and patient's medications and allergies were reviewed. The risks (including pancreatitis), benefits and alternatives of the sedation and procedure were discussed with the patient. All questions were answered and informed consent was obtained. The patient was brought to the fluoroscopic radiology room. Patient identification and proposed procedure were verified by the physician and the nurse. The patient was placed in a swimmer's position between left lateral decubitus and prone position and the scope was passed under direct vision. Throughout the procedure, the patient's blood pressure, pulse, and oxygen saturations were monitored continuously. The ERCP was accomplished without difficulty. The patient tolerated the procedure well. Findings: The duodenoscope was passed directly into the upper esophagus and advanced to the second portion of the duodenum. The fluoroscopic C arm was then placed into position prior to cannulation with the duodenoscope was centered in a L-shaped position fluoroscopically in the second portion of duodenum. The entire endoscopic exam was done in conjunction with fluoroscopy. The cannula was then inserted through the duodenoscope channel and preloaded with low osmolar contrast. Within the second portion of duodenum there was a friable fungating mass effacing the ampulla/biliary and pancreatic orifice and there was friability resulting in a lot of heme and clot on the surface of the mass. This was approximately 4 cm in length and discernment of the ampullary orifice was very difficult. With the guidewire, I was able to cannulate but could not easily determine whether this was within biliary or pancreatic lumen even with contrast injection. Because of the friability of tissue and not fully seeing discrete ductal lumen and discrete ductal pattern on contrast injection, I did not feel that it was safe to inject a lot of contrast if this was extraluminal. Because of the soft and friable tissue with ease of passing the cannula through the soft tissue in 2-3 different areas, I did feel that this was going to make it very difficult to find the biliary opening and would not approach biliary decompression in this manner. Multiple biopsies were obtained and tissue was obtained that was suction through the channel and all sent to pathology. 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 Impression: 1. 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 I will follow-up the biopsies and refer the patient to surgical oncology (Eagle Ordoñez MD) at the [facility]. I will check CA 19-9 and CEA level. The patient does have malignant obstruction of the bile duct and will still require biliary decompression either via EUS guided versus PTC.
--- NOTE | 2024-10-19 10:22 | P.PNANES_ITS ---
[facility] Anesthesia Record Part I Anesthesia Record I Intake, IV Amount: 500 Hydration: Adequate Estimated blood loss (mL): 0 Urine output (mL): 0 Blood Products used (#): none Blood Pressure: 157/103 SaO2: 97 Pulse Rate: 100 Airway Patency: Patent Respiratory Rate: 13 Temperature: 97.0 F Patient is:: Awake and Stable Stable to PACU at:: 10:18
--- NOTE | 2024-10-19 10:23 | FL_ITS ---
FINAL REPORT CLINICAL HISTORY: MASS OF DUCT FT: 4.2 86.37 MGY FINDINGS: FLUOROSCOPY LESS THAN 1 HOUR HISTORY: Fluoroscopy guidance. Fluoroscopic guidance was provided for ERCP. A single spot film was obtained. A total of 4.2 minutes of fluoroscopy time were used. Total DAP: 86.37 mGy IMPRESSION: As above. Reviewed, Interpreted and Dictated by Jose Juan Hannon MD Transcribed by Aliza Campbell Authenticated and . [facility]
[2024-10-19 11:08] LABS: POC Glucose,Bedside 123 (70-110)
[2024-10-19 15:20] LABS: POC Glucose,Bedside 179 (70-110)
--- NOTE | 2024-10-19 15:46 | EXP.ACUTE.PN ---
Subjective *Date: 10/19/24 *Time: 15:46 Interval history: Denies abdominal pain. No nausea or vomiting. Taken for EGD/ERCP. Unable to stent blockage due to friable tissue. Visible friable tissue in duodenum. Most consistent with cancer. Patient's liver enzymes remain stable today. On room air. Afebrile. Medical Exam Vital signs and Labs for Last 24 Hours: Vital Signs Temp Pulse Pulse Resp BP BP Pulse Ox 10/19/24 15:00 10/19/24 12:55 98.3 F 70 19 145/68 H 100 10/19/24 12:25 98.2 F 68 18 138/64 100 10/19/24 11:55 98.2 F 88 18 135/65 98 10/19/24 11:40 98.2 F 91 H 17 140/78 98 10/19/24 11:25 98.2 F 88 17 144/74 H 98 10/19/24 11:10 98.2 F 87 17 136/76 95 10/19/24 10:55 98.2 F 87 17 126/74 95 10/19/24 10:48 97.0 F L 88 16 150/83 H 98 10/19/24 10:38 97.0 F L 86 16 144/86 H 98 10/19/24 10:28 97.0 F L 89 16 149/84 H 96 10/19/24 10:23 97.0 F L 100 H 13 157/103 H 10/19/24 10:18 97.0 F L 93 H 16 137/78 98 10/19/24 09:42 10/19/24 08:20 10/19/24 08:00 99.8 F H 97 H 18 146/77 H 98 10/19/24 07:32 98.1 F 89 22 115/61 99 10/19/24 06:12 10/19/24 05:00 10/19/24 04:00 98.1 F 89 22 115/61 99 10/19/24 02:08 10/19/24 01:00 10/19/24 00:00 98.0 F 85 16 111/62 98 10/18/24 23:00 10/18/24 21:00 10/18/24 20:00 10/18/24 20:00 98.0 F 79 18 129/71 99 10/18/24 17:25 10/18/24 17:00 10/18/24 16:40 97.8 F 77 16 119/72 95 10/18/24 16:30 98.4 F 77 15 125/71 10/18/24 16:29 98.4 F 73 17 105/57 L 10/18/24 16:14 10/18/24 16:11 76 12 105/57 L 99 O2 Del Method 10/19/24 15:00 Room Air 10/19/24 12:55 Room Air 10/19/24 12:25 Room Air 10/19/24 11:55 Room Air 10/19/24 11:40 Room Air 10/19/24 11:25 Room Air 10/19/24 11:10 Room Air 10/19/24 10:55 Room Air 10/19/24 10:48 Room Air 10/19/24 10:38 Room Air 10/19/24 10:28 Room Air 10/19/24 10:23 10/19/24 10:18 Room Air 10/19/24 09:42 Mechanical Ventilation 10/19/24 08:20 Room Air 10/19/24 08:00 Room Air 10/19/24 07:32 Room Air 10/19/24 06:12 Room Air 10/19/24 05:00 Room Air 10/19/24 04:00 Room Air 10/19/24 02:08 Room Air 10/19/24 01:00 Room Air 10/19/24 00:00 Room Air 10/18/24 23:00 Room Air 10/18/24 21:00 Room Air 10/18/24 20:00 Room Air 10/18/24 20:00 Room Air 10/18/24 17:25 Room Air 10/18/24 17:00 Room Air 10/18/24 16:40 10/18/24 16:30 Room Air 10/18/24 16:29 Room Air 10/18/24 16:14 Room Air 10/18/24 16:11 Intake and Output 10/18/24 10/19/24 10/19/24 23:59 07:59 15:59 Intake Total 300 / 420 120 / 1130 1010 / 1130 Output Total 0 / 0 0 / 0 Balance 300 / 420 120 / 1130 1010 / 1130 Intake: Intake, Oral Amount 300 / 420 120 / 630 510 / 630 Intake, Total IV Amount 500 / 500 Output: Output, Urine Amount 0 / 0 0 / 0 Other: Number of Unmeasured Voids 1 1 Weight 75.013 kg 75.807 kg Patient Weight 10/19/24 23:59 Weight 75.807 kg Laboratory Results - last 24 hr 10/18/24 14:15: Ammonia < 9 L, Hepatitis A IgM Ab Negative, Hep Bs Antigen Negative, Hep B Core IgM Ab Negative, Hepatitis C Antibody Non reactive, HCV RNA PCR Test Info Comment, HIV Ag/Ab Combo Qual Negative 10/18/24 20:53: POC Glucose 135 H 10/19/24 06:06: WBC 7.5, RBC 4.24 L, Hgb 11.6 L D, Hct 35.1 L, MCV 82.8, MCH 27.4, MCHC 33.0, RDW 14.0, Plt Count 329, MPV 10.1, Neut % (Auto) 63.9, Lymph % (Auto) 20.7, Starke % (Auto) 13.1 H, Eos % (Auto) 1.3, Baso % (Auto) 0.7, Neut # (Auto) 4.8, Lymph # (Auto) 1.6, Starke # (Auto) 1.0, Eos # (Auto) 0.1, Baso # (Auto) 0.1, Sodium 135 L, Potassium 3.6, Chloride 108 H, Carbon Dioxide 21 L, Anion Gap 9.6, BUN 8 L D, Creatinine 1.30 H, Estimated Creat Clear 61, Estimated GFR 55 L, Est GFR ( Amer) 67, Glucose 139 H, Hemoglobin A1c 7.7 H, Calcium 9.0, Magnesium 2.0, Total Bilirubin 1.7 H, AST 66 H, ALT 75, Alkaline Phosphatase 209 H, Total Protein 7.0, Albumin 3.7, Globulin 3.3 H, Albumin/Globulin Ratio 1.1 10/19/24 11:00: POC Glucose 123 H 10/19/24 15:12: POC Glucose 179 H I & O for Labs for Last 24 Hours: Intake & Output 10/16/24 10/17/24 10/18/24 10/19/24 23:59 23:59 23:59 23:59 Intake Total 300 / 420 1130 / 1130 Output Total 0 / 0 0 / 0 Balance 300 / 420 1130 / 1130 Weight 75.013 kg 75.807 kg Constitutional: Present no acute distress, average body habitus and cooperative Head: Present atraumatic and normocephalic ENT: Present normal exam Respiratory: Present normal respiratory effort; Absent rhonchi or wheezes Cardiac: Present Reg Rate and Rhythm GI: Present soft and normal bowel sounds; Absent distention or tenderness Extremities: Present normal inspection and full ROM Skin: Present intact; Absent erythema Neuro: Present Grossly Intact, alert, awake, oriented x 3 and moves all extremities Assessment and Plan *Assessment and plan (1) Malignant biliary obstruction: Status: Acute Category: Medical Code(s): K83.1 - Obstruction of bile duct; C80.1 - Malignant (primary) neoplasm, unspecified (2) Mass of head of pancreas: Status: Acute Category: Medical Code(s): K86.89 - Other specified diseases of pancreas (3) BPH with urinary obstruction: Status: Acute Category: Medical Code(s): N40.1 - Benign prostatic hyperplasia with lower urinary tract symptoms; N13.8 - Other obstructive and reflux uropathy (4) Transaminitis: Status: Acute Category: Medical Code(s): R74.01 - Elevation of levels of liver transaminase levels (5) Obstructive jaundice: Status: Acute Category: Medical Code(s): K83.1 - Obstruction of bile duct (6) HLD (hyperlipidemia): Status: Chronic Qualifiers: Hyperlipidemia type: mixed hyperlipidemia Qualified Code(s): E78.2 - Mixed hyperlipidemia Category: Medical Code(s): E78.5 - Hyperlipidemia, unspecified (7) DM2 (diabetes mellitus, type 2): Status: Chronic 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 Had labs obtained by his PCP that showed elevated liver enzymes concerning for an obstructive pathology. Presented to the ED, imaging identified pancreatic head mass. Medicine consulted for admission and further management along with GI for further workup. Discussed case with ER physician, request admission for ERCP in the morning and possible stenting of obstruction. I agreed to admit for further care. GI consulted. Taken for ERCP. Will monitor overnight and advance diet. Anticipate discharge tomorrow. 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 Able to obtain biopsies but unable to place stent. Will refer to Dr. George at within the next week for evaluation and discussion about for further treatment and surgery. Advance diet. If tolerating p.o. intake by morning, discharge home tomorrow -CA 19-9 and CEA obtained and pending - Repeat CBC, CMP, magnesium ordered for the morning. -Sodium 135, kidney function normal with BUN 8, creatinine 1.3. Bilirubin 1.7, AST 66, ALT 75, alk phos 209. Diabetes: A1c 7.7, above goal. Discontinue GLP-1. Currently on sliding scale insulin and fingersticks ACHS. Okay to resume home regimen at discharge aside from GLP-1. Will need further adjustments as an outpatient. May necessitate insulin initiation in the coming weeks Hyperlipidemia: Will hold Crestor in the setting of elevated liver enzymes Hypertension: Continue lisinopril 20 mg daily and metoprolol succinate 50 mg daily Depression: Continue desvenlafaxine succinate 50 mg daily Full code Full liquid diet, advance to regular as tolerated
--- NOTE | 2024-10-19 16:04 | PC.NURSE ---
Aox 4, up ad fernanda, fsbg achs, advance diet astol, ercp done today, 22g l ac sl, no changes noted.
[2024-10-20] VITALS: BP 117/66; PULSE 78; RESP 18; TEMP 36.4; O2SAT 98
[2024-10-20 04:00] VITALS: BP 121/73; PULSE 87; RESP 18; TEMP 37.1; O2SAT 98; BMI 24.7
--- NOTE | 2024-10-20 04:38 | PC.NURSE ---
Pt A&OX4 and has tolerated room air. Lung sounds clear and bowel sounds active. He is tolerating diet with no complaints of N/V. He has ambulated room independently. Family has remained at bedside throughout the night. No complaints at this time, call light within reach.
[2024-10-20 05:08] LABS: POC Glucose,Bedside 188 (70-110)
[2024-10-20 05:18] LABS: POC Glucose,Bedside 120 (70-110)
[2024-10-20 07:56] VITALS: BP 117/69; PULSE 95; RESP 16; TEMP 36.8; O2SAT 96
[2024-10-20] MEDS: LISINOPRIL 20 MG 1 EACH PO (08:01)
[2024-10-20 08:09] LABS: Basophils # 0.1 K/mm3 (0-0.2); Basophils % 0.8 % (0.1-2.0); Eosinophils # 0.1 Kmm3 (0.0-0.4); Eosinophils % 0.7 % (0.1-12.0); Hematocrit 36.9 % (42.0-52.0); Lymphocytes % 23.7 % (10-50); Mean Corpuscular HGB Conc 32.5 g/dL (31.8-35.4); Mean Corpuscular Hemoglobin 27.2 pg (27.0-31.2); Mean Corpuscular Volume 83.7 fl (80-94); Mean Platelet Volume 10.1 fl (7.4-10.4); Monocytes # 0.9 K/mm3 (0.1-1.0); Monocytes % 10.6 % (1.7-9.3); Neutrophils # 5.3 K/mm3 (1.8-7.8); Neutrophils % 63.7 % (37.0-80.0); Nucleated Red Blood Cells # 0 10^3/uL; Nucleated Red Blood Cells % 0 %; Platelet Count 351 K/mm3 (142-424); Red Blood Count 4.41 M/mm3 (4.60-6.20); Red Cell Distribution Width 14.2 % (11.5-17.5); Red Cell Distribution Width-SD 43.3 fL; White Blood Count 8.4 K/mm3 (4.8-10.8)
[2024-10-20 08:14] LABS: CA 19-9 144 U/mL (0-35); CEA 28.7 ng/mL (0.0-4.7)
[2024-10-20 08:23] LABS: Alanine Aminotransferase 82 U/L (12-78); Albumin/Globulin Ratio 1.2 (1.1-1.8); Alkaline Phosphatase 220 U/L (38-126); Anion Gap 11.4 mEq/L (5-15); Aspartate Amino Transferase 69 U/L (17-59); Bilirubin,Total 2.2 mg/dl (0.2-1.3); Blood Urea Nitrogen 10 mg/dl (9-20); Calcium 9.4 mg/dl (8.4-10.2); Carbon Dioxide 25 mmol/L (22.0-30.0); Chloride 104 mmol/L (98-107); Creatinine Clearance Estimated 59 mL/min (50-200); Estimated Glomerular Filt Rate 55 ml/min (>60); GFR (African American) 67 ML/MIN (>60); Globulin 3.4 g/dL (1.3-3.2); Glucose 130 mg/dl (74-100); Potassium 3.4 mmoL/L (3.5-5.1); Sodium 137 mmol/L (136-145); Total Protein,Serum 7.4 g/dl (6.3-8.2)
[2024-10-20 10:29] LABS: POC Glucose,Bedside 202 (70-110)
--- NOTE | 2024-10-20 13:00 | EXP.DC.SUM ---
General Admission date:: 10/18/24 HPI HPI HPI: Mr. Carrillo is a 64-year-old male who presents from his PCP to the ER due to weakness, nausea, back pain. Patient states he had about a 15 pound weight loss over the past 6 to 8 weeks. Back pain began about 3 weeks ago. Denies nausea or vomiting. Denies any abdominal pain. Denies fever or night sweats. Had some labs obtained in the outpatient setting that showed mild elevation of liver enzymes and bilirubin. Concern for UTI, was sent to infusion for IV ceftriaxone. While here, his PCP recommended he go to the ER for further evaluation due to his abnormal labs. In the ED, labs showed normal hemoglobin. Liver chemistries showing bilirubin of 2, alk phos of 233. Lipase 1300. CT of abdomen obtained showing approximately 3-1/2 cm hypodense mass at the head of the pancreas. Concern for biliary dilatation as well. Medicine was consulted for admission and further management along with the assistance of GI. Arriving to the floor, patient appears in no acute distress. Stable on room air. Reports history in his family with mother having had pancreatic cancer within the past year at the age of 90. Had a sister that from advanced metastatic colon cancer within the past few years. Reports having had colonoscopy earlier this year with no abnormal findings. He is a former drinker and smoker but has not partaken in years. Is currently on GLP-1 for diabetes. Hospital Course Hospital Course Hospital Course: 64-year-old male who presents with unintentional weight loss, pain in his back. Had labs obtained by his PCP that showed elevated liver enzymes concerning for an obstructive pathology. Presented to the ED, imaging identified pancreatic head mass. Medicine consulted for admission and further management along with GI for further workup. Discussed case with ER physician, request admission for ERCP in the morning and possible stenting of obstruction. I agreed to admit for further care. GI consulted. Taken for ERCP. Will monitor overnight and advance diet. Anticipate discharge tomorrow. 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 Able to obtain biopsies but unable to place stent. Will refer to Dr. George at within the next week for evaluation and discussion about for further treatment and surgery. Advanced and tolerated diet. - CA 19-9 elevated to 144, CEA elevated to 28.7. Highly concerning for cancer. ? Discharged with close follow-up with GI and Dr. Ordoñez at . Diabetes: A1c 7.7, above goal. Discontinue GLP-1 due to suspected pancreatic cancer. Currently on sliding scale insulin and fingersticks ACHS. Okay to resume home regimen at discharge aside from GLP-1. Will need further adjustments as an outpatient. May necessitate insulin initiation in the coming weeks Hyperlipidemia: Will hold Crestor in the setting of elevated liver enzymes Hypertension: Continue lisinopril 20 mg daily and metoprolol succinate 50 mg daily Depression: Continue desvenlafaxine succinate 50 mg daily Exam Data for Last 24 hours Vital signs and Labs for Last 24 Hours: Temp Pulse Resp BP Pulse Ox O2 Del Method 98.3 F 95 H 16 117/69 96 Room Air 10/20/24 07:56 10/20/24 07:56 10/20/24 07:56 10/20/24 07:56 10/20/24 07:56 10/20/24 12:13 Laboratory Results - last 24 hr 10/18/24 17:55: Carcinoembryonic Ag 28.7 H, CA 19-9 Antigen 144 H 10/19/24 15:12: POC Glucose 179 H 10/19/24 19:50: POC Glucose 188 H 10/20/24 05:11: POC Glucose 120 H 10/20/24 07:15: WBC 8.4, RBC 4.41 L, Hgb 12.0 L, Hct 36.9 L, MCV 83.7, MCH 27.2, MCHC 32.5, RDW 14.2, Plt Count 351, MPV 10.1, Neut % (Auto) 63.7, Lymph % (Auto) 23.7, Swain % (Auto) 10.6 H, Eos % (Auto) 0.7, Baso % (Auto) 0.8, Neut # (Auto) 5.3, Lymph # (Auto) 2.0, Swain # (Auto) 0.9, Eos # (Auto) 0.1, Baso # (Auto) 0.1, Sodium 137, Potassium 3.4 L, Chloride 104, Carbon Dioxide 25, Anion Gap 11.4, BUN 10, Creatinine 1.30 H, Estimated Creat Clear 59, Estimated GFR 55 L, Est GFR ( Amer) 67, Glucose 130 H, Calcium 9.4, Total Bilirubin 2.2 H, AST 69 H, ALT 82 H, Alkaline Phosphatase 220 H, Total Protein 7.4, Albumin 4.0, Globulin 3.4 H, Albumin/Globulin Ratio 1.2 10/20/24 10:21: POC Glucose 202 H I & O for Last 24 hours: Intake & Output 10/17/24 10/18/24 10/19/24 10/20/24 23:59 23:59 23:59 23:59 Intake Total 300 / 420 1475 / 1675 560 / 560 Output Total 0 / 0 0 / 0 0 / 0 Balance 300 / 420 1475 / 1675 560 / 560 Weight 75.013 kg 75.807 kg 74.191 kg Microbiology Reports for the Last 24 Hours: Microbiology 10/18/24 13:24 Urine,Clean Catch Urine Culture - Final Constitutional Constitutional: no acute distress *Routine HEENT Exam Head: Present normocephalic Eye: Present EOMI and PERRL ENT: Present mucous membranes moist *Routine Neck Exam Neck: Present supple; Absent lymphadenopathy *Routine Respiratory Exam Respiratory: Present CTA bilaterally *Routine Cardiovascular Exam Cardiovascular: Present RRR *Routine Abdominal Exam Abdominal: Present soft, normoactive bowel sounds and tenderness *Routine Extremities Exam Extremities: Absent cyanosis, clubbing or edema *Routine Skin Exam Skin: Present warm; Absent rash *Routine Neurological Exam Neurological: Present alert and oriented X3 Results Data Completed and Pending Labs on day of discharge: Labs from last 24 hours 10/20/24 10/20/24 10/20/24 10:21 07:15 05:11 WBC 8.4 RBC 4.41 L Hgb 12.0 L Hct 36.9 L MCV 83.7 MCH 27.2 MCHC 32.5 RDW 14.2 Plt Count 351 MPV 10.1 Neut % (Auto) 63.7 Lymph % (Auto) 23.7 Swain % (Auto) 10.6 H Eos % (Auto) 0.7 Baso % (Auto) 0.8 Neut # (Auto) 5.3 Lymph # (Auto) 2.0 Swain # (Auto) 0.9 Eos # (Auto) 0.1 Baso # (Auto) 0.1 Sodium 137 Potassium 3.4 L Chloride 104 Carbon Dioxide 25 Anion Gap 11.4 BUN 10 Creatinine 1.30 H Estimated Creat Clear 59 Estimated GFR 55 L Est GFR ( Amer) 67 Glucose 130 H POC Glucose 202 H 120 H Calcium 9.4 Total Bilirubin 2.2 H AST 69 H ALT 82 H Alkaline Phosphatase 220 H Total Protein 7.4 Albumin 4.0 Globulin 3.4 H Albumin/Globulin Ratio 1.2 Carcinoembryonic Ag CA 19-9 Antigen 10/19/24 10/19/24 10/18/24 19:50 15:12 17:55 WBC RBC Hgb Hct MCV MCH MCHC RDW Plt Count MPV Neut % (Auto) Lymph % (Auto) Swain % (Auto) Eos % (Auto) Baso % (Auto) Neut # (Auto) Lymph # (Auto) Swain # (Auto) Eos # (Auto) Baso # (Auto) Sodium Potassium Chloride Carbon Dioxide Anion Gap BUN Creatinine Estimated Creat Clear Estimated GFR Est GFR ( Amer) Glucose POC Glucose 188 H 179 H Calcium Total Bilirubin AST ALT Alkaline Phosphatase Total Protein Albumin Globulin Albumin/Globulin Ratio Carcinoembryonic Ag 28.7 H CA 19-9 Antigen 144 H DS: Diagnosis Discharge Diagnosis (1) Malignant biliary obstruction: Status: Acute Code(s): K83.1 - Obstruction of bile duct; C80.1 - Malignant (primary) neoplasm, unspecified (2) Mass of head of pancreas: Status: Acute Code(s): K86.89 - Other specified diseases of pancreas (3) BPH with urinary obstruction: Status: Acute Code(s): N40.1 - Benign prostatic hyperplasia with lower urinary tract symptoms; N13.8 - Other obstructive and reflux uropathy (4) Transaminitis: Status: Acute Code(s): R74.01 - Elevation of levels of liver transaminase levels (5) Obstructive jaundice: Status: Acute Code(s): K83.1 - Obstruction of bile duct (6) HLD (hyperlipidemia): Status: Chronic Code(s): E78.5 - Hyperlipidemia, unspecified Qualifiers: Hyperlipidemia type: mixed hyperlipidemia Qualified Code(s): E78.2 - Mixed hyperlipidemia (7) DM2 (diabetes mellitus, type 2): Status: Chronic Code(s): E11.9 - Type 2 diabetes mellitus without complications Qualifiers: Diabetes mellitus complication status: with unspecified complications Diabetes mellitus dedicated intermodal truck driver insulin use: with senior care use Qualified Code(s): E11.8 - Type 2 diabetes mellitus with unspecified complications; Z79.4 - skilled nursing (current) use of insulin (8) Hypertension: Status: Chronic Code(s): I10 - Essential (primary) hypertension Qualifiers: Hypertension type: essential hypertension Qualified Code(s): I10 - Essential (primary) hypertension Meds Home Medications and Allergies Home Medications ?Medication ?Instructions ?Recorded ?Confirmed ?Type aspirin 81 mg tablet,delayed 81 mg PO DAILY 08/29/20 10/18/24 History release cholecalciferol (vitamin D3) 25 25 mcg PO DAILY 10/18/24 10/18/24 History mcg (1,000 unit) capsule desvenlafaxine succinate 50 mg 50 mg PO DAILY 10/18/24 10/18/24 History tablet,extended release 24 hr ergocalciferol (vitamin D2) 1,250 1,250 mcg PO WEEKLY 10/18/24 10/18/24 History mcg (50,000 unit) capsule levocetirizine 5 mg tablet 5 mg PO DAILY 10/18/24 10/18/24 History linaclotide 145 mcg capsule 145 mcg PO DAILY 10/18/24 10/18/24 History (Linzess) lisinopril 20 mg tablet 20 mg PO DAILY 10/18/24 10/18/24 History metoprolol succinate 50 mg 50 mg PO DAILY 10/18/24 10/18/24 History tablet,extended release 24 hr pioglitazone 30 mg tablet 30 mg PO DAILY 10/18/24 10/18/24 History rosuvastatin 40 mg tablet 40 mg PO DAILY 10/18/24 10/18/24 History semaglutide 2 mg/dose (8 mg/3 mL) 2 mg SQ WEEKLY 10/18/24 10/18/24 History subcutaneous pen injector (Ozempic) New Prescriptions to Start Prescriptions: Allergies Allergy/AdvReac Type Severity Reaction Status Date / Time No Known Allergies Allergy Verified 10/18/24 12:28 Discharge Plan Disposition Patient Disposition: Home, Self-Care Condition: Fair Follow up Plan Follow up with: Linnette Lam PA [Primary Care Provider, Medical] - 10/26/24 10:30 am Micha Saleh II, MD [Staff Physician, Gastroenterology] - 10/30/24 9:15 am Prescriptions/Medication Reconciliation: Continued aspirin 81 mg tablet,delayed release (DR/EC) 81 mg PO DAILY lisinopril 20 mg tablet 20 mg PO DAILY Patient Comments: TAKE 1 TABLET BY MOUTH ONCE DAILY DIRECTED FOR HIGH BLOOD PRESSURE ergocalciferol (vitamin D2) 1,250 mcg (50,000 unit) capsule 1,250 mcg PO WEEKLY Patient Comments: TAKE 1 CAPSULE BY MOUTH ONCE A WEEK pioglitazone 30 mg tablet 30 mg PO DAILY Patient Comments: TAKE 1 TABLET BY MOUTH ONCE DAILY cholecalciferol (vitamin D3) 25 mcg (1,000 unit) Capsule 25 mcg PO DAILY rosuvastatin 40 mg tablet 40 mg PO DAILY Patient Comments: TAKE 1 TABLET BY MOUTH ONCE DAILY levocetirizine 5 mg tablet 5 mg PO DAILY Patient Comments: TAKE 1 TABLET BY MOUTH ONCE DAILY desvenlafaxine succinate 50 mg tablet extended release 24 hr 50 mg PO DAILY Patient Comments: TAKE 1 TABLET BY MOUTH ONCE DAILY Linzess 145 mcg capsule 145 mcg PO DAILY Patient Comments: TAKE 1 CAPSULE BY MOUTH ONCE DAILY FOR 90 DAYS Ozempic 2 mg/dose (8 mg/3 mL) pen injector 2 mg SQ WEEKLY Patient Comments: INJECT 2MG SUBCUTANEOUSLY ONCE A WEEK metoprolol succinate 50 mg tablet extended release 24 hr 50 mg PO DAILY Problem Reconciliation Problems Reviewed?: Yes Patient Discharge Instructions Patient Instructions: Pancreatic Cancer, DI for Urinary Tract Infection (UTI) Print Language: Cam[place]onian Providers Primary Care Provider: Linnette Lam Admit Provider: Erik Joseph Attending Provider: Erik Joseph
--- NOTE | 2024-10-22 13:27 | SW/DCPLANNER ---
Spoke with patient on the phone. Patient stated that he is doing very well just waiting on a call from [place] Patient stated that he is aware of his upcoming appointments. Patient stated that he wasnt prescribed any new medicine. Patient stated that he has no concerns or questions at this time. Génesis Gaytan
[2024-10-22 14:26] VITALS: BP 150/83; PULSE 88; RESP 16; TEMP 36.1; O2SAT 98
--- NOTE | 2024-10-22 14:26 | EXP.ANES.II ---
[facility] Anesthesia Record Part II Anesthesia Record Part II Discharge Time: 10:48 Destination: Medical Surgical Department PACU nurse assessment reviewed?: Yes Patient Condition:: Good Anesthesia Complications:: None Swallowing reflex intact?: Yes Airway Patency: Patent Cyanosis?: No Blood Pressure: 150/83 SaO2: 98 Respiratory Rate: 16 Pulse Rate: 88 Temperature: 97 F Mental Status: Alert & Oriented Pain level:: 0 Nausea and/or vomitting:: None Intake, IV Amount: 0 Hydration: Adequate
== END 2024-10-20 13:40 | disposition home or self-care (01) ==
LOC: ER 14:26 → 2ND 16:39
PROVIDERS: Internal Medicine Gastroenterology; Physician Assistant; Admitting Provider Internal Medicine Adolescent Medicine; Emergency Provider Emergency Medicine; PCP Physician Assistant; Visit Provider Internal Medicine Adolescent Medicine
PROC: (CPT 43260; principal; 2024-10-19 08:30)
DX: C17.0 Malignant neoplasm of duodenum (principal); K83.1 Obstruction of bile duct; E78.5 Hyperlipidemia, unspecified; I10 Essential (primary) hypertension; F32.A Depression, unspecified; E11.9 Type 2 diabetes mellitus without complications; K86.9 Disease of pancreas, unspecified; R74.01 Elevation of levels of liver transaminase levels; N40.1 Benign prostatic hyperplasia with lower urinary tract symptoms; N13.8 Other obstructive and reflux uropathy; Z87.891 Personal history of nicotine dependence; Z79.899 Other long term (current) drug therapy; Z85.72 Personal history of non-Hodgkin lymphomas; Z80.8 Family history of malignant neoplasm of other organs or systems; Z80.0 Family history of malignant neoplasm of digestive organs; Z79.4 Long term (current) use of insulin; Z79.82 Long term (current) use of aspirin
CPT/HCPCS: 43261; 96372; 36415; 71275; 74174; 74330; 80053; 80074; 80329; 81001; 82140; 82247; 82248; 82378; 82962; 83036; 83735; 85025; 86301; 86803; 87086; 87389; 88305; 88341; 88342; 99291; C1769; G0378; J1100; J1650; J2003; J2405; J2704; J7030; Q9967